=== PATIENT | female | born 1945 | race Caucasian/White ===

== ENCOUNTER → 2019-11-20 12:10 | Outpatient (BNVA) | payer MEDICARE, OTHER, SELFPAY | PROVIDERS: Family Provider Family Medicine; PCP Family Medicine; Visit Provider Nurse Practitioner Family | DX: N39.0 Urinary tract infection, site not specified (principal) | CPT/HCPCS: 81003; 87086 ==

== ENCOUNTER 2020-05-23 09:58 | Outpatient (CLI) | payer MEDICARE, OTHER, SELFPAY ==
--- NOTE | 2020-05-23 10:11 | US_ITS ---
WS: [id number] ULTRASOUND PELVIS TECHNIQUE: Transabdominal and transvaginal. ULTRASOUND PELVIS TECHNIQUE: Transabdominal. CLINICAL INFORMATION: OVARIAN CYST : No. COMPARISON: None. FINDINGS: Hysterectomy. Adnexa: Cystic and solid left ovarian lesion measuring 7.3 x 5.1 x 4.6 cm. Right ovarian cyst measuri ng 3.7 x 2.2 x 3.1 cm. Right ovary size: 3.8 cm x 3.1 cm x 2.2 cm. Right ovary volume: 13.5 ccm3. Left ovary size: 7.2 cm x 5.4 cm x 5.3 cm. Left ovary volume: 107.2 ccm3 Free fluid: Free fluid right adnexa Other findings: None. US/US pelvic with transvaginal IMPRESSION: 1. Prior hysterectomy. 2. Cystic and solid left ovarian lesion measuring 7.3 x 5.1 x 4.6 cm most cons istent with neoplasm. Recommend BOWLING BALL ENGRAVER consultation for resection. 3. Right ovarian cyst measuring 3.7 x 2.2 x 3.1 CM. 4. Free fluid in the right adnexa.
== END 2020-05-23 09:59 | disposition home or self-care (01) ==
LOC: RAD 10:00
PROVIDERS: PCP Family Medicine; Visit Provider Family Medicine
DX: N83.201 Unspecified ovarian cyst, right side; N83.202 Unspecified ovarian cyst, left side
CPT/HCPCS: 76830; 76856

== ENCOUNTER → 2020-07-25 13:56 | Outpatient (BNVA) | payer MEDICARE, OTHER, SELFPAY | PROVIDERS: PCP Family Medicine; Referring Provider Family Medicine; Visit Provider Dermatology | DX: L73.9 Follicular disorder, unspecified (principal); L57.0 Actinic keratosis; W57.XXXA Bitten or stung by nonvenomous insect and other nonvenomous arthropods, initial encounter; X58.XXXA Exposure to other specified factors, initial encounter; B07.8 Other viral warts | CPT/HCPCS: 17000; 17003; 17110; 99203 ==

== ENCOUNTER 2020-09-13 09:01 | Emergency (ER) | payer MEDICARE, OTHER, SELFPAY ==
[2020-09-13 09:06] VITALS: BP 183/100; PULSE 101; RESP 18; TEMP 36.8; O2SAT 96; BMI 30.4
--- NOTE | 2020-09-13 09:30 | W.ED.ANXIETY ---
HPI - Anxiety General: Chief Complaint: Anxiety Stated Complaint: Left side numb pt states not having stroke Time Seen by Provider: 09/13/20 09:16 History of Present Illness: HPI narrative: Patient is a 75-year-old female comes to the ED with numbness to both right and left upper extremities and anxiety. Symptoms started this morning when she woke up. Patient also states she is very anxious. Now. Patient states she has a past medical history of MS. Patient states she has had the symptoms before usually she gets steroid help manage her symptoms. MD complaint: anxiety Associated symptoms: Deny chest pain, chills, fever(s), headache(s), nausea, palpitations or vomiting Review of Systems Const: Denies: fever(s), chills or fatigue Eyes: Denies: change in vision or eye discomfort ENMT: Denies: throat pain, odynophagia, nasal discharge or nasal congestion Card: Denies: chest pain, palpitations, edema, swelling of feet/ankles, dyspnea on exertion or orthopnea Resp: Denies: dyspnea, productive cough or non-productive cough GI: Denies: abdominal pain, nausea, vomiting, diarrhea, constipation or hematochezia : Denies: flank pain, dysuria or hematuria Musc: Denies: neck pain, back pain or extremity swelling Skin/Breast: Denies: rash or new lesions Neuro: Reports: numbness in extremities (to right and left upper extremities.); Denies: headache(s) or weakness in extremities Psych: Reports: anxiety PFSH ED PFSH: Family History Grandmother Cancer Father Diabetes Mother Hypertension Other Psychiatric illness Social History Smoking and tobacco status: former smoker Alcohol intake: former Physical Exam Const: COMMON NORMALS: no acute distress, patient oriented x3, healthy appearing and alert GENERAL APPEARANCE: cooperative, comfortable and anxious HENMT: COMMON NORMALS: normocephalic HEAD & SCALP: normocephalic MOUTH: Normal oral and palatal mucosa present THROAT: posterior oropharynx normal and uvula midline Eye: COMMON NORMALS: Equal, round and reactive pupils present and EOMs intact bilaterally PUPIL: Yes Equal, round and reactive pupils present Neck/C-Spine: COMMON NORMALS: supple GENERAL: Yes normal visual inspection Resp: COMMON NORMALS: normal respiratory effort, No retractions, No use of accessory muscles and clear to auscultation bilaterally AUSCULTATION: clear to auscultation bilaterally Cardio: COMMON NORMALS: regular rate, regular rhythm, S1 normal heart sound present, S2 normal heart sound present, No gallops present (Cardio), No clicks present (Cardio), No murmurs present (Cardio) and Peripheral pulses 2+ throughout RATE: regular rate RHYTHM: regular rhythm HEART SOUNDS: S1 normal heart sound present and S2 normal heart sound present PERIPHERAL PULSES: Peripheral pulses 2+ throughout GI: COMMON NORMALS: Normal to inspection, nondistended, normoactive bowel sounds present, Soft to palpation, non-tender and no masses PALPATION: Yes Soft to palpation : COMMON NORMALS: Yes no CVA tenderness BLADDER/KIDNEY EXAM: Yes no CVA tenderness Back/Pelvis: COMMON NORMALS: no CVA tenderness Extremity: COMMON NORMALS: normal to inspection and no pedal edema Neuro: COMMON NORMALS: patient oriented x3, CN's II-XII intact bilaterally, moves all extremities, no focal motor deficits and no sensory deficits noted SENSORIUM/ORIENTATION: Yes alert COORDINATION/BALANCE: [id number] test normal SPEECH: speech normal SENSORY EXAM: Yes extremities (intact) MOTOR EXAM: 5/5 motor strength present throughout COORDINATION: [id number] test normal Psych: SPEECH: Yes excessive and Yes rapid MOOD & AFFECT: Yes anxious Skin: GENERAL SKIN EXAM: dry skin Course ED course: Told patient to perform further testing such as an head CT and labs. Patient says she refuses to get any extra work-up done. I explained to her the risk. She understood and said she would be happy to sign an AMA form. Vital Signs: Vital signs: Vital Signs Temperature 98.3 F 09/13/20 09:06 Pulse Rate 78 09/13/20 10:28 Respiratory Rate 18 09/13/20 10:28 Blood Pressure 119/52 09/13/20 10:28 Pulse Oximetry 95 09/13/20 10:28 MDM - Anxiety MDM Narrative: Medical decision making narrative: Patient is a 75-year-old female who comes to the ED with anxiety and upper extremity numbness bilaterally. Patient says the upper extremity numbness bilaterally is related to her MS and she has had the symptoms in the past. I performed a neuro exam on patient and it was normal and showed no deficits. Patient did appear very anxious and states that she does have problems with anxiety in the past. I told patient I did like to do further testing such as a head CT and some lab work but she refused them. She agreed and signed an AMA form before being discharged. Patient was given a dose of IM Ativan and Solu-Medrol. She was diagnosed with acute anxiety and multiple sclerosis and discharged with a prescription for prednisone. Patient given return to ED precautions. I explained to her that I would like to perform further testing patient CT imaging and labs she refused and signed AMA form. She was told to follow-up with PCP in 7 to 10 days. Patient understood and agreed with plan. Discharge Plan Discharge Patient Disposition: Home Clinical Impression: Acute anxiety, Multiple sclerosis Condition: Stable Prescriptions: New prednisone 50 mg tablet 50 mg PO DAILY 5 Days Qty: 5 RF: 0 No Action trimethoprim 100 mg tablet 100 mg PO ONCE RF: 0 levothyroxine 100 mcg capsule 100 mcg PO ONCE RF: 0 pantoprazole 40 mg tablet,delayed release (DR/EC) 40 mg PO ONCE RF: 0 cholecalciferol (vitamin D3) 50 mcg (2,000 unit) capsule 50 mcg PO ONCE RF: 0 calcium carbonate [Calcium 500] 500 mg calcium (1,250 mg) tablet 500 mg PO ONCE RF: 0 Probiotic 3 billion cell capsule 3,000 mmu cells PO ONCE RF: 0 venlafaxine 50 mg tablet 50 mg PO ONCE RF: 0 venlafaxine 150 mg tablet extended release 24hr 150 mg PO ONCE RF: 0 multivitamin Capsule 1 cap PO ONCE RF: 0 meclizine 25 mg tablet 25 mg PO TID PRN (Reason: dizziness) Qty: 10 RF: 0 Discharge Orders: Discharge Order (Routine); Ordered 09/13/20 Ordered By: Dipesh Singleton Referrals: Woodrow Estes MD [Primary Care Provider] - Discharge Diet: Regular Discharge Activity: Increase activity as tolerated Patient Instructions: Multiple Sclerosis, Anxiety (ED) Activity Restrictions/Additional Instructions: Follow-up with medical provider as directed in 7-10 days. Take medications as prescribed. Return to the ER or your medical provider if condition worsens. Please read and understand discharge instructions. If any questions, please ask. Discharge Date/Time: 09/13/20 10:31 Coding Level of Care Code ED Machine Featheredger And Reducer for Chg Fwd Exam Comprehensive
[2020-09-13] MEDS: LORazepam 2 mg/mL INJ 1 mL 1 MG IM (09:43)
[2020-09-13 10:28] VITALS: BP 119/52; PULSE 78; RESP 18; O2SAT 95
== END 2020-09-13 10:31 | disposition home or self-care (01) ==
LOC: ER 10:12
PROVIDERS: Emergency Provider Physician Assistant; PCP Family Medicine
DX: F41.9 Anxiety disorder, unspecified (principal); G35 Multiple sclerosis; Z87.891 Personal history of nicotine dependence
CPT/HCPCS: 12345; 96372; 99281; 99283; J2060; J2930

== ENCOUNTER 2020-09-26 14:04 | Emergency (ER) | payer MEDICARE, OTHER, SELFPAY ==
[2020-09-26 14:20] VITALS: BP 123/83; PULSE 83; RESP 14; TEMP 36.8; O2SAT 100; BMI 33.3
[2020-09-26 14:58] VITALS: BP 129/90; PULSE 87; RESP 15; O2SAT 97
--- NOTE | 2020-09-26 15:50 | XR_ITS ---
WS: [id number] Exam: XR chest 1V portable [id number] Date/Time of Exam: 09/26/2020 3:50 PM Reason For Exam: weakness Comparison 06/29/2019. The lungs are clear and fully inflated. Normal cardiomediastinal structures and bony elements. Promin ent hiatal hernia. No change. XR/XR chest 1V portable [id number] IMPRESSION: 1. No acute cardiopulmonary finding. 2. Hiatal hernia.
--- NOTE | 2020-09-26 15:53 | W.ED.WEAKNES ---
HPI - Weakness General: Chief complaint: Weakness Stated complaint: WEAKNESS Time Seen by Provider: 09/26/20 15:03 Source: patient and family () Mode of arrival: ambulatory Limitations: no limitations History of Present Illness: HPI Narrative: Patient is a 75-year-old female who presents to the emergency department with complaints of progressive generalized weakness that has been going on for about 2 weeks. She states her symptoms are progressively worsening. She states that she has a history of multiple sclerosis but the doctors in this area do not believe her. She states she was diagnosed in 1983 at a hospital in [place]. She denies any fever, nausea or vomiting, headaches, dizziness. She denies any urinary symptoms. She denies any shortness of breath. Complaint: generalized weakness Onset (ago): week(s) (2) Duration: constant and progressively worsening Migration: none Severity: moderate Relieving factors: none Exacerbating factors: none Associated symptoms: Denies chills, dysuria, fever(s), headache(s), nausea or vomiting Review of Systems General: Reports: 10 or more systems reviewed and unremarkable except in HPI and below Const: Denies: fever(s), chills or body aches Eyes: Denies: change in vision or blurry vision ENMT: Denies: throat pain, enlarged tonsils, odynophagia, hoarseness, mouth pain or swelling of lips/tongue Card: Denies: palpitations, irregular heart rhythm, edema or swelling of feet/ankles Resp: Denies: dyspnea, productive cough or non-productive cough GI: Denies: abdominal pain, nausea or vomiting : Denies: flank pain, difficulty voiding, dysuria, urinary frequency, urinary urgency or urinary hesitancy Musc: Denies: neck pain, back pain or extremity swelling Skin/Breast: Denies: rash, pruritus or erythema Neuro: Denies: headache(s), numbness in extremities or weakness in extremities Endo: Denies: polyuria, polydipsia or tired all the time PFS ED PFSH: Medical History Hypothyroidism Surgical History History of carpal tunnel surgery of right wrist History of hysterectomy History of tonsillectomy and adenoidectomy Family History Grandmother Cancer Father Diabetes Mother Hypertension Other Psychiatric illness Social History Smoking and tobacco status: former smoker Alcohol intake: former Physical Exam Const: COMMON NORMALS: no acute distress, average body habitus, patient oriented x3, no limitations, healthy appearing, alert and well nourished HENMT: COMMON NORMALS: normocephalic, atraumatic and moist oral mucous membranes HEAD & SCALP: normocephalic and atraumatic Eye: COMMON NORMALS: Equal, round and reactive pupils present, EOMs intact bilaterally, conjunctivae normal and no scleral icterus CONJUNCTIVA: Yes conjunctivae normal PUPIL: Yes Equal, round and reactive pupils present Neck/C-Spine: COMMON NORMALS: full ROM, supple, no meningeal signs, no JVD and No carotid bruits Resp: COMMON NORMALS: normal respiratory effort, No retractions, No use of accessory muscles, clear to auscultation bilaterally and percussion normal AUSCULTATION: clear to auscultation bilaterally PERCUSSION: percussion normal Cardio: COMMON NORMALS: no JVD, regular rate, regular rhythm, S1 normal heart sound present, S2 normal heart sound present, No gallops present (Cardio), No clicks present (Cardio), No murmurs present (Cardio), No rub (Cardio) and Peripheral pulses 2+ throughout RATE: regular rate RHYTHM: regular rhythm HEART SOUNDS: S1 normal heart sound present and S2 normal heart sound present PERIPHERAL PULSES: Peripheral pulses 2+ throughout GI: COMMON NORMALS: Normal to inspection, nondistended, normoactive bowel sounds present, Soft to palpation, non-tender, No hepatosplenomegaly present, no masses and no bruits PALPATION: Yes Soft to palpation and Yes No hepatosplenomegaly present Extremity: COMMON NORMALS: normal to inspection, full ROM, capillary refill normal, no calf tenderness and no pedal edema Neuro: COMMON NORMALS: patient oriented x3 SENSORIUM/ORIENTATION: Yes alert MENINGEAL SIGNS: Yes no meningeal signs Skin: COMMON NORMALS: no rashes or lesions noted, no wounds, turgor normal, no jaundice, no petechiae and no mottling GENERAL SKIN EXAM: no rashes or lesions noted and turgor normal Course Reevaluation(s): Reevaluation #1: Discussed her lab and imaging findings with her. Explained to her that TSH is elevated which means she is hypothyroid and this goes along with all her symptoms of weakness loss of energy, and loss of appetite. We will increase the dose of her levothyroxine and she is to follow-up with her primary care provider. She states that she has an appointment with him tomorrow. She is also advised that she may need evaluation by a neurologist for her MS diagnosis. She does not want to see Dr. Sanchez so I advised her that her primary care provider should refer her to a neurologist in [place]. She voiced understanding and is in agreement with this plan. Time: 18:47 Vital Signs: Vital signs: Vital Signs Temperature 98.2 F 09/26/20 14:20 Pulse Rate 64 09/26/20 19:07 Respiratory Rate 17 09/26/20 19:07 Blood Pressure 123/94 09/26/20 19:07 Pulse Oximetry 97 09/26/20 19:07 MDM - Weakness MDM Narrative: Medical decision making narrative: 75-year-old female patient with a history of hypothyroidism and who presents to the emergency department with progressive weakness, loss of energy, loss of appetite, of about 2 weeks duration. Evaluation in the emergency department is unremarkable other than elevated TSH. She was prescribed an increased dose of levothyroxine Saturday discharged to follow-up with her primary care provider. The patient states that she has a history of multiple sclerosis but that has not been addressed since she moved to this area, so therefore advised to bring it up with her primary care provider, get an MRI of her brain and to be referred to a neurologist. She does not want to be referred to the local neurologist as she was not satisfied when she saw her before. She has an appointment with her primary care provider tomorrow. Medical Records: Attestation: I reviewed the patient's medical records. Lab Data: Attestation: I reviewed the patient's lab results. Labs: Lab Results 09/26/20 09/26/20 09/26/20 Range/Units 16:11 16:11 16:32 WBC 13.5 H (4.0-10.0) 10^3/ uL RBC 4.79 (4.1-5.3) 10^6/u L Hgb 13.2 (11.5-15.3) g/dL Hct 41.7 (37.0-47.0) % MCV 87.1 (81-99) fL MCH 27.6 L (28.0-34.0) pg MCHC 31.7 (30.0-36.0) g/dL RDW 14.7 (12.1-15.1) % Plt Count 369 (130-400) 10^3/c mm MPV 8.1 (7.4-10.4) fL Neut % (Auto) 76.0 % Lymph % (Auto) 18.5 % [place] % (Auto) 3.3 % Eos % (Auto) 0.7 % Baso % (Auto) 0.4 % Neut # (Auto) 10.21 H (1.8-7.7) 10^3/u L Lymph # (Auto) 2.5 (0.8-4.8) 10^3/u L [place] # (Auto) 0.4 (0.2-0.9) 10^3/u L Eos # (Auto) 0.1 (0.0-0.8) 10^3/u L Baso # (Auto) 0.1 (0.0-0.1) 10^3/u L Nucleated RBC % (a uto) 0 % Nucleated RBCs # 0.0 /100WBC Sodium (136-145) mmol/L Potassium (3.5-5.1) mmol/L Chloride (98-107) mmol/L Carbon Dioxide (22-29) mmol/L Anion Gap (5-19) BUN (8-23) mg/dL Creatinine (0.5-0.9) mg/dL GFR Calculation Glucose (65-115) mg/dL Calculated Osmolal ity (285-295) mOsm/k g Calcium (8.5-10.5) mg/dL Phosphorus (2.5-4.5) mg/dL Magnesium (1.7-2.3) mg/dL Total Bilirubin (0.15-1.2) mg/dL AST (0-32) U/L ALT (0-33) U/L Alkaline Phosphata se (35-105) IU/L Creatine Kinase (26-192) U/L C-Reactive Protein (0.0-4.9) mg/L Total Protein (6.6-8.7) g/dL Albumin (3.5-5.2) g/dL Globulin (1.3-4.6) g/dL Procalcitonin (0-0.5) ng/mL TSH (0.27-4.20) uIU/ mL Urine Color Yellow (Yellow) Urine Appearance Clear (CLEAR) Urine pH 5 (5-7) Ur Specific Gravit y 1.015 (1.005-1.030) Urine Protein Neg (Negative) Urine Glucose (UA) Norm (Normal) Urine Ketones Negative (Negative) Urine Blood Neg (Negative) Urine Nitrate Negative (Negative) Urine Bilirubin Neg (Negative) Urine Urobilinogen Norm (Negative) mg/dL Ur Leukocyte Starla ase Negative (Negative) Urine Opiates Scre en Negative (Negative) ng/mL Ur Barbiturates Sc reen Negative (Negative) ng/mL Ur Phencyclidine S crn Negative (Negative) ng/mL Ur Amphetamines Sc reen Negative (Negative) ng/mL U Benzodiazepines Scrn Negative (Negative) ng/mL Urine Cocaine Scre en Negative (Negative) ng/mL U Marijuana (THC) Screen Negative (Negative) ng/mL 11/16/20 Range/Units 16:32 WBC (4.0-10.0) 10^3/ uL RBC (4.1-5.3) 10^6/u L Hgb (11.5-15.3) g/dL Hct (37.0-47.0) % MCV (81-99) fL MCH (28.0-34.0) pg MCHC (30.0-36.0) g/dL RDW (12.1-15.1) % Plt Count (130-400) 10^3/c mm MPV (7.4-10.4) fL Neut % (Auto) % Lymph % (Auto) % [place] % (Auto) % Eos % (Auto) % Baso % (Auto) % Neut # (Auto) (1.8-7.7) 10^3/u L Lymph # (Auto) (0.8-4.8) 10^3/u L [place] # (Auto) (0.2-0.9) 10^3/u L Eos # (Auto) (0.0-0.8) 10^3/u L Baso # (Auto) (0.0-0.1) 10^3/u L Nucleated RBC % (a uto) % Nucleated RBCs # /100WBC Sodium 137 (136-145) mmol/L Potassium 4.0 (3.5-5.1) mmol/L Chloride 98 (98-107) mmol/L Carbon Dioxide 29 (22-29) mmol/L Anion Gap 14.0 (5-19) BUN 20 (8-23) mg/dL Creatinine 0.7 (0.5-0.9) mg/dL GFR Calculation Not Reportable Glucose 99 (65-115) mg/dL Calculated Osmolal ity 287 (285-295) mOsm/k g Calcium 9.3 (8.5-10.5) mg/dL Phosphorus 4.6 H (2.5-4.5) mg/dL Magnesium 2.2 (1.7-2.3) mg/dL Total Bilirubin 0.2 (0.15-1.2) mg/dL AST 14 (0-32) U/L ALT 18 (0-33) U/L Alkaline Phosphata se 98 (35-105) IU/L Creatine Kinase 28 (26-192) U/L C-Reactive Protein 1.4 (0.0-4.9) mg/L Total Protein 6.7 (6.6-8.7) g/dL Albumin 4.3 (3.5-5.2) g/dL Globulin 2.4 (1.3-4.6) g/dL Procalcitonin 0.04 (0-0.5) ng/mL TSH 7.13 H (0.27-4.20) uIU/ mL Urine Color (Yellow) Urine Appearance (CLEAR) Urine pH (5-7) Ur Specific Gravit y (1.005-1.030) Urine Protein (Negative) Urine Glucose (UA) (Normal) Urine Ketones (Negative) Urine Blood (Negative) Urine Nitrate (Negative) Urine Bilirubin (Negative) Urine Urobilinogen (Negative) mg/dL Ur Leukocyte Starla ase (Negative) Urine Opiates Scre en (Negative) ng/mL Ur Barbiturates Sc reen (Negative) ng/mL Ur Phencyclidine S crn (Negative) ng/mL Ur Amphetamines Sc reen (Negative) ng/mL U Benzodiazepines Scrn (Negative) ng/mL Urine Cocaine Scre en (Negative) ng/mL U Marijuana (THC) Screen (Negative) ng/mL Imaging Data^: CXR: Attestation: I personally reviewed and interpreted this imaging study as follows: Radiologist's impression: [address] [address] XRay Report Signed Patient: Fara Rosenberg #: [id number] : 5Acct#:[id number] Age/Sex: 75 / FADM Date: 09/26/20 Loc: ERRoom/Bed: Attending Dr: Ordering Provider/Ordering MD: Salina Pressley MD, [facility] Date of Service: 09/26/20 Procedure(s): XR chest 1V portable [id number] Accession Number(s): [id number] Report Number: [id number] WS: [id number] Exam: XR chest 1V portable [id number] Date/Time of Exam: 09/26/2020 3:50 PM Reason For Exam: weakness Comparison 06/29/2019. The lungs are clear and fully inflated. Normal cardiomediastinal structures and bony elements. Prominent hiatal hernia. No change. XR/XR chest 1V portable [id number] IMPRESSION: 1. No acute cardiopulmonary finding. 2. Hiatal hernia. Dictated By:Sha Kellogg DO Signed By:Roger Bray Date/Time:09/26/201605 DD/ 05 EKG Data^: EKG 1: Attestation: I personally reviewed and interpreted this EKG as follows: EKG interpretation date: 09/26/20 EKG interpretation time: 16:29 Prior EKG tracings: not available for review Interpretation: Normal sinus rhythm. Heart rate [address] changes. Normal axis. Discharge Plan Discharge Patient Disposition: Home Clinical Impression: Hypothyroidism Qualifiers: Hypothyroidism type: unspecified Qualified Code(s): E03.9 - Hypothyroidism, unspecified Condition: Stable Prescriptions: New levothyroxine 125 mcg tablet 125 mcg PO DAILY Qty: 30 RF: 0 Continued cholecalciferol (vitamin D3) 50 mcg (2,000 unit) capsule 50 mcg PO DAILY RF: 0 Probiotic 3 billion cell capsule 3,000 mmu cells PO DAILY RF: 0 venlafaxine 150 mg tablet extended release 24hr 150 mg PO DAILY RF: 0 multivitamin Capsule 1 cap PO DAILY RF: 0 venlafaxine 50 mg tablet 75 mg PO DAILY RF: 0 meclizine 25 mg tablet 25 mg PO TID PRN (Reason: dizziness) Qty: 10 RF: 0 triamcinolone acetonide 0.1 % ointment 1 applic TOPICAL BID Qty: 80 RF: 0 prednisone 10 mg tablet 10 mg PO DAILY Qty: 30 RF: 0 omeprazole 40 mg Capsule,Delayed Release(Dr/Ec) 40 mg PO BID RF: 0 Keppra 1,000 mg Tablet 1,000 mg PO BID RF: 0 Discontinued levothyroxine 100 mcg capsule 100 mcg PO DAILY RF: 0 Discharge Orders: Discharge Order (Routine); Ordered 09/26/20 Ordered By: Salina Pressley Referrals: Woodrow Estes MD [Primary Care Provider] - 1-3 days Discharge Diet: Usual diet Discharge Activity: Increase activity as tolerated Patient Instructions: Hypothyroidism (ED) Activity Restrictions/Additional Instructions: Return for any new or worsening symptoms. Discontinue the current dose of your levothyroxine and start to take the new dose. Follow-up with Dr. Estes tomorrow as scheduled. Have Dr. Estes refer you to a neurologist in [place] since you do not want to see Dr. Sanchez. He can also order an outpatient MRI of your brain. Coding Level of Care Code ED Ornamental Painter for Chg Fwd Exam Comprehensive
--- NOTE | 2020-09-26 16:05 | ECG_ITS ---
[facility] Test Date: 2020-09-26 Pat Name: Fara Rosenberg Department: Room: Gender: Female Coding Spec: : 1945 Requested By: Salina Pressley I Order Number: [id number] Cole MD: Carlos Dalton M.D. Measurements Intervals Newcomb Rate: 64 P: 38 WY: 149 QRS: 6 QRSD: 78 T: 11 QT: 383 QTc: 398 Interpretive Statements SINUS RHYTHM POSSIBLE ANTERIOR MYOCARDIAL INFARCTION , PROBABLY OLD [30 ms Q WAVE IN V3/V4, OR R < 0.2 mV IN V4] Compared to ECG 06/29/2019 06:04:36 Myocardial infarct finding now present Electronically Signed On 09-26-2020 18:29:07 SHAPER MACHINE HAND by Carlos Dalton M.D. [id number] f
[2020-09-26 16:20] LABS: Add Urine Microscopic? NO
[2020-09-26 16:31] LABS: Amphetamines Screen Urine Negative (Negative); Barbiturates Screen Urine Negative (Negative); Benzodiazepines Screen Urine Negative (Negative); Cocaine Screen Urine Negative (Negative); Opiate Screen Urine Negative (Negative); PCP Screen Urine Negative (Negative); THC Screen Urine Negative (Negative)
[2020-09-26 16:34] LABS: Bilirubin Urine Neg (Negative); Blood Urine Neg (Negative); Glucose Urine UA Norm (Normal); Ketones Urine Negative (Negative); Leukocyte Esterase Urine Negative (Negative); Nitrate Urine Negative (Negative); Protein Urine Neg (Negative); Specific Gravity, Urine 1.015 (1.005-1.030); Urine Appearance Clear (CLEAR); Urine Color Yellow (Yellow); Urobilinogen Urine Norm (Negative); pH Urine 5 (5-7)
[2020-09-26 16:41] LABS: Basophils # 0.1 10^3/uL (0.0-0.1); Basophils % 0.4 %; Eosinophils # 0.1 10^3/uL (0.0-0.8); Eosinophils % 0.7 %; Hematocrit 41.7 % (37.0-47.0); Hemoglobin 13.2 g/dL (11.5-15.3); Lymphocytes # 2.5 10^3/uL (0.8-4.8); Lymphocytes % 18.5 %; Mean Corpuscular HGB Conc 31.7 g/dL (30.0-36.0); Mean Corpuscular Hemoglobin 27.6 pg (28.0-34.0); Mean Corpuscular Volume 87.1 fL (81-99); Mean Platelet Volume 8.1 fL (7.4-10.4); Monocytes # 0.4 10^3/uL (0.2-0.9); Monocytes % 3.3 %; Neutrophils # 10.21 10^3/uL (1.8-7.7); Nucleated Red Blood Cells % 0 %; Platelet Count 369 10^3/cmm (130-400); Red Blood Count 4.79 10^6/uL (4.1-5.3); Red Cell Distribution Width 14.7 % (12.1-15.1); White Blood Count 13.5 10^3/uL (4.0-10.0)
[2020-09-26 17:11] LABS: Procalcitonin 0.04 ng/mL (0-0.5); Thyroid Stimulating Hormone 7.13 uIU/mL (0.27-4.20)
[2020-09-26 17:23] LABS: Alanine Aminotransferase 18 U/L (0-33); Albumin Level 4.3 g/dL (3.5-5.2); Alkaline Phosphatase 98 IU/L (35-105); Aspartate Amino Transferase 14 U/L (0-32); Blood Urea Nitrogen 20 mg/dL (8-23); C Reactive Protein 1.4 mg/L (0.0-4.9); Calcium 9.3 mg/dL (8.5-10.5); Carbon Dioxide 29 mmol/L (22-29); Chloride 98 mmol/L (98-107); Creatine Phosphokinase 28 U/L (26-192); Globulin 2.4 g/dL (1.3-4.6); Glucose 99 mg/dL (65-115); Magnesium 2.2 mg/dL (1.7-2.3); Osmolality Calculated 287 mOsm/kg (285-295); Phosphorus 4.6 mg/dL (2.5-4.5); Sodium 137 mmol/L (136-145); Total Bilirubin 0.2 mg/dL (0.15-1.2); Total Protein 6.7 g/dL (6.6-8.7)
[2020-09-26 18:13] VITALS: BP 123/94; PULSE 69; RESP 16; O2SAT 93
[2020-09-26 19:07] VITALS: BP 123/94; PULSE 64; RESP 17; O2SAT 97
== END 2020-09-26 19:08 | disposition home or self-care (01) ==
PROVIDERS: Emergency Provider Family Medicine; PCP Family Medicine
DX: E03.9 Hypothyroidism, unspecified (principal); R53.1 Weakness; Z87.891 Personal history of nicotine dependence; Z79.52 Long term (current) use of systemic steroids; Z79.899 Other long term (current) drug therapy
CPT/HCPCS: 12345; 71045; 80053; 80306; 81003; 82550; 83735; 84100; 84145; 84443; 85025; 86140; 93005; 99281; 99283

== ENCOUNTER 2020-10-12 15:29 | Emergency (ER) | payer MEDICARE, OTHER, SELFPAY ==
[2020-10-12 15:33] VITALS: BP 143/73; PULSE 89; RESP 18; TEMP 36.3; O2SAT 97; BMI 31.6
--- NOTE | 2020-10-12 15:44 | XR_ITS ---
WS: [id number] Right hand, 3 views, 10/12/2020 Clinical Data: laceration rt thumb Comparison: None. Findings: No fractures or dislocations are seen. The soft tissues are unremarkable. There is osteoa rthritic change of the DIP joints of the second through fifth fingers.No radiopaque foreign bodies ar e seen. XR/XR hand RT min 3V* [id number] Impression: 1. Negative for fracture or dislocation. 2. 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
--- NOTE | 2020-10-12 16:06 | W.ED.WOUNDLC ---
HPI - Wound/Laceration General: Chief Complaint: Wound/Laceration Stated Complaint: LACERATION ON R THUMB Time Seen by Provider: 10/12/20 15:44 Source: patient Mode of arrival: ambulatory Limitations: no limitations History of Present Illness: HPI narrative: 75-year-old female patient reports fall at the veterinary clinic today prior to arrival. She reports injury to her right thumb. She reports taking her dog to the vet when the dog pulled her outside and tripped sustaining a fall. She reports did not hit her head. Denies further injuries, has ambulated since the fall without difficulty. Onset (ago): minute(s) (30) Place: other Patient tetanus UTD: No Context: accidental Associated symptoms: Reports no associated symptoms; Denies chills, fever(s), nausea or vomiting Treatments prior to arrival: other (Pressure dressing) Review of Systems General: Reports: 10 or more systems reviewed and unremarkable except in HPI and below Const: Denies: fever(s), chills, body aches, change in appetite or diaphoresis Eyes: Denies: change in vision, blurry vision, eye redness or dry eyes ENMT: Denies: throat pain, dental pain, disequilibrium, nasal discharge, nasal congestion or post nasal drip Card: Denies: chest pain, palpitations, irregular heart rhythm, swelling of feet/ankles or dyspnea on exertion Resp: Denies: dyspnea, productive cough, non-productive cough or wheezing GI: Denies: abdominal pain, nausea or vomiting : Denies: difficulty voiding or dysuria Musc: Reports: joint pain (Right thumb); Denies: neck pain or back pain Skin/Breast: Denies: rash or pruritus Neuro: Denies: headache(s), weakness in extremities or behavioral changes Psych: Denies: anxiety or depression Mihir/Lymph: Denies: easy bruising PFSH ED PFSH: Medical History (Reviewed 09/26/20 @ 16:05 by [place] [facility] [place] Surgical History (Reviewed 09/26/20 @ 16:05 by [place] [facility] [place] History of carpal tunnel surgery of right wrist History of hysterectomy History of tonsillectomy and adenoidectomy Family History (Reviewed 09/26/20 @ 16:05 by Salina [place] [facility] [place] Grandmother Cancer Father Diabetes Mother Hypertension Other Psychiatric illness Social History (Reviewed 09/26/20 @ 16:05 by [place] [facility] [place] Smoking and tobacco status: former smoker Alcohol intake: former Physical Exam Const: COMMON NORMALS: no acute distress, patient oriented x3, healthy appearing, alert and well nourished GENERAL APPEARANCE: cooperative, comfortable and well hydrated; not anxious and not ill appearing NUTRITIONAL APPEARANCE: thin ORIENTATION/CONSCIOUSNESS: Yes awake, Yes oriented to person, Yes oriented to place and Yes oriented to time; not confused HENMT: COMMON NORMALS: normocephalic, atraumatic, Normal external nose present and moist oral mucous membranes HEAD & SCALP: normal to inspection, normocephalic and atraumatic FACE & SINUS: normal facial exam, sinuses nontender and face symmetric NOSE: Normal external nose present Eye: COMMON NORMALS: Equal, round and reactive pupils present and EOMs intact bilaterally GENERAL EYE: appearance normal, both eyes and all related structures PUPIL: Yes Equal, round and reactive pupils present Neck/C-Spine: COMMON NORMALS: full ROM and no lymphadenopathy GENERAL: Yes normal visual inspection and Yes trachea midline CERVICAL SPINE: Yes cervical ROM normal, No pain with cervical ROM, No Cervical spine tenderness and No Paracervical muscle tenderness Lymph: LYMPHATIC: no lymphadenopathy noted Chest: COMMONS NORMALS: normal inspection of the chest Resp: COMMON NORMALS: normal respiratory effort, No retractions and clear to auscultation bilaterally EFFORT & INSPECTION: Yes able to speak in complete sentences AUSCULTATION: clear to auscultation bilaterally Cardio: COMMON NORMALS: regular rhythm, S1 normal heart sound present, S2 normal heart sound present and Peripheral pulses 2+ throughout RHYTHM: regular rhythm HEART SOUNDS: S1 normal heart sound present and S2 normal heart sound present PERIPHERAL PULSES: Peripheral pulses 2+ throughout GI: COMMON NORMALS: Normal to inspection, nondistended, normoactive bowel sounds present, Soft to palpation and non-tender INSPECTION: Yes normal to inspection PALPATION: Yes Soft to palpation : COMMON NORMALS: Yes no CVA tenderness BLADDER/KIDNEY EXAM: Yes no CVA tenderness Back/Pelvis: COMMON NORMALS: no CVA tenderness and thoracic and lumbar spine normal to inspection Extremity: COMMON NORMALS: normal to inspection and capillary refill normal GENERAL: Yes normal exam except as noted RIGHT UPPER EXTREMITY: Yes hand & digits Right hand and digits: Yes inspection (Laceration, flap 1.5 cm at the second PIP), Yes palpation (Tenderness of the area, right thumb, radial side), Yes ROM exam (Intact without deficits), Yes neurovascular exam (Intact without deficits) and Yes tendon exam (Intact without deficits) Neuro: COMMON NORMALS: patient oriented x3 and no focal motor deficits SENSORIUM/ORIENTATION: Yes alert, Yes oriented to person, Yes oriented to place and Yes oriented to time GAIT: Yes Normal gait present MOTOR EXAM: 5/5 motor strength present throughout Psych: COMMON NORMALS: mental status grossly normal, Normal thought process present and cooperative ACTIVITY/MOTOR BEHAVIOR: Yes appropriate eye contact THOUGHT PROCESS: Normal thought process present Skin: COMMON NORMALS: no rashes or lesions noted and turgor normal GENERAL SKIN EXAM: no rashes or lesions noted, elasticity normal and turgor normal LESIONS: no lesions RASHES: no rashes TRAUMA: abrasion (Small abrasion, 2 cm x 3 cm, superficial, no bleeding, proximal thumb) Procedures Laceration Laceration 1: Site: hand (right thumb) Side (If applicable): right Size (cm): 1.5 Description: flap, irregular and other (contused) Depth: simple, single layer Local Anesthetic: lidocaine 1% Amount of anesthesia used (mL): 2 Pre-repair: wound explored, irrigated extensively, deep structures intact, extensive debridement and wound margins revised Skin layer closed with: nylon Size (cm): 5-0 Number of sutures: 3 Course Vital Signs: Vital signs: Vital Signs Temperature 98.4 F 10/12/20 16:34 Pulse Rate 68 10/12/20 16:34 Respiratory Rate 18 10/12/20 16:34 Blood Pressure 128/74 10/12/20 16:34 Pulse Oximetry 98 10/12/20 16:34 MDM - Wound/Laceration Imaging Data^: Xray Ortho: Radiologist's impression: [address] [address] XRay Report Signed Patient: Fara Rosenberg #: [id number] : 5Acct#:[id number] Age/Sex: 75 / FADM Date: 10/12/20 Loc: ERRoom/Bed: Attending Dr: Ordering Provider/Ordering MD: Bobbi Lewis Date of Service: 10/12/20 Procedure(s): XR hand RT min 3V* [id number] Accession Number(s): [id number] Report Number: [id number] WS: [id number] Right hand, 3 views, 10/12/2020 Clinical Data: laceration rt thumb Comparison: None. Findings: No fractures or dislocations are seen. The soft tissues are unremarkable. There is osteoarthritic change of the DIP joints of the second through fifth fingers.No radiopaque foreign bodies are seen. XR/XR hand RT min 3V* [id number] Impression: 1. Negative for fracture or dislocation. 2. 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 Dictated By:Karen Del Rosario MD Signed By:Karen Del Rosarioigned Date/Time:10/12/20 1601 Discharge Plan Discharge Patient Disposition: Home Clinical Impression: Laceration, Fall against object Condition: Stable Prescriptions: No Action cholecalciferol (vitamin D3) 50 mcg (2,000 unit) capsule 50 mcg PO DAILY RF: 0 Probiotic 3 billion cell capsule 3,000 mmu cells PO DAILY RF: 0 venlafaxine 150 mg tablet extended release 24hr 150 mg PO DAILY RF: 0 multivitamin Capsule 1 cap PO DAILY RF: 0 venlafaxine 50 mg tablet 75 mg PO DAILY RF: 0 meclizine 25 mg tablet 25 mg PO TID PRN (Reason: dizziness) Qty: 10 RF: 0 triamcinolone acetonide 0.1 % ointment 1 applic TOPICAL BID Qty: 80 RF: 0 prednisone 10 mg tablet 10 mg PO DAILY Qty: 30 RF: 0 omeprazole 40 mg Capsule,Delayed Release(Dr/Ec) 40 mg PO BID RF: 0 Keppra 1,000 mg Tablet 1,000 mg PO BID RF: 0 levothyroxine 125 mcg tablet 125 mcg PO DAILY Qty: 30 RF: 0 Discharge Orders: Discharge ED (Routine); Ordered 10/12/20 Ordered By: Bobbi Lewis Referrals: Woodrow Estes MD [Primary Care Provider] - Discharge Diet: Usual diet Discharge Activity: Limit activity as instructed Patient Instructions: Diphtheria/Acellular Pertussis/Tetanus Booster Vaccine (Tdap) (Injection), Suture Care (ED), Finger Laceration (ED), Abrasion (ED) Activity Restrictions/Additional Instructions: remove sutures in 7 days -may go to urgent care or your family practice physician for removal Return to the emergency department if you develop increased thumb pain. Redness, drainage or red streaking of the right thumb Do not submerge the right thumb in water until sutures are removed. May gently wash the affected area with soap and water then pat dry immediately Coding Level of Care Code ED Patient Flow Coordinator for Lucero Vaughn
[2020-10-12] MEDS: tetanus-dipt-pertussis 0.5 mL SDV IM (16:28)
[2020-10-12] MEDS: lidocaine 1% INJ 20 mL INJECTION (16:29)
[2020-10-12 16:34] VITALS: BP 128/74; PULSE 68; RESP 18; TEMP 36.9; O2SAT 98
== END 2020-10-12 16:35 | disposition home or self-care (01) ==
PROVIDERS: Emergency Provider Nurse Practitioner Family; PCP Family Medicine
DX: S61.011A Laceration without foreign body of right thumb without damage to nail, initial encounter (principal); W01.0XXA Fall on same level from slipping, tripping and stumbling without subsequent striking against object, initial encounter; Z87.891 Personal history of nicotine dependence; Z23 Encounter for immunization
CPT/HCPCS: 12001; 12345; 73130; 90471; 90715; 99281; 99283

== ENCOUNTER 2020-12-13 07:58 | Outpatient (CLI) | payer MEDICARE, OTHER, SELFPAY ==
--- NOTE | 2020-12-13 08:05 | MM_ITS ---
WS: [id number] BILATERAL DIGITAL SCREENING MAMMOGRAPHY WITH CAD CLINICAL INFORMATION: SCREENING HISTORY: Screening mammogram. No current complaints. COMPARISON: TECHNIQUE: Bilateral CC and MLO views. FINDINGS: Scattered fibroglandular densities bilaterally. No suspicious focal mass, asymmetry, calcifications, or architectural distortion. No evidence of malignancy. Biopsy clip upper outer right breast with par enchymal fibrosis. MM/[place] [id number] IMPRESSION: BI-RADS: 2-Benign FOLLOW UP: 1 Year Follow-up Recommend return to annual screening mammography.
== END 2020-12-13 07:59 | disposition home or self-care (01) ==
LOC: RADSHAW 08:01
PROVIDERS: PCP Family Medicine; Visit Provider Family Medicine
DX: Z12.31 Encounter for screening mammogram for malignant neoplasm of breast (principal)
CPT/HCPCS: 77067

== ENCOUNTER 2021-01-07 17:51 | Emergency (ER) | payer MEDICARE, OTHER, SELFPAY ==
[2021-01-07 18:00] VITALS: BP 136/68; PULSE 66; RESP 18; TEMP 36.6; O2SAT 98; BMI 33.3
--- NOTE | 2021-01-07 18:54 | CTR_ITS ---
PROCEDURE INFORMATION: Exam: CT Head Without Contrast Exam date and time: 01/07/2021 7:29 PM Age: 75 years old Clinical indication: Patient HX: C/O BRUNNER, dizziness, nausea and weakness; Additional info: Dizzy TECHNIQUE: Imaging protocol: Computed tomography of the head without contrast. Radiation optimization: All CT scans at this facility use at least one of these dose optimization techniques: automated exposure control; mA and/or kV adjustment per patient size (includes targeted exams where dose is matched to clinical indication); or iterative reconstruction. COMPARISON: MRI Head w/wo* [id number] 10/30/2018 1:28 PM RADIATION DOSE METRICS: Total DLP (mGy-cm): 836.09 FINDINGS: Brain: There is mild cerebral atrophy. No acute intracranial hemorrhage. No focal intracranial mass. No acute brain ischemia. No midline shift of brain. Cope matter and white matter differentiation is preserved. No cerebral sulcal effacement. No basilar cisternal effacement. Cerebral ventricles: No ventriculomegaly. Bones/joints: Unremarkable. No acute fracture. Paranasal sinuses: Visualized sinuses are unremarkable. No fluid levels. Mastoid air cells: Visualized mastoid air cells are well aerated. Orbital cavity: Orbits are symmetric and unremarkable. Soft tissues: Unremarkable. CT/CT head wo con* [id number] IMPRESSION: 1. Negative for acute intracranial abnormality. 2. No change in the brain apparent when compared with brain MRI from 10/30/2018. Radiation Dose CTDIVOL = (mGy): DLP = 836.09 (mGy-cm)
--- NOTE | 2021-01-07 18:54 | XRR_ITS ---
PROCEDURE INFORMATION: Exam: XR Chest Exam date and time: 01/07/2021 6:56 PM Age: 75 years old Clinical indication: Other: Dizzy TECHNIQUE: Imaging protocol: XR of the chest Views: 1 view. COMPARISON: CR XR chest 1V portable [id number] 09/26/2020 3:53 PM FINDINGS: Lungs: Unremarkable. No consolidation. Pleural spaces: Unremarkable. No pleural effusion. No pneumothorax. Heart/Mediastinum: Unremarkable. No cardiomegaly. Bones/joints: Unremarkable. XR/XR chest 1V portable [id number] IMPRESSION: 1. No acute findings. 2. No change from comparison on 09/26/2020.
[2021-01-07 18:56] VITALS: BP 124/74; PULSE 59; RESP 18; O2SAT 98
[2021-01-07] MEDS: LORazepam 2 mg/mL INJ 1 mL 0.5 MG IVP (19:00)
[2021-01-07] MEDS: dexamethasone 4 mg/mL INJ 8 MG IVP (19:00)
[2021-01-07] MEDS: ondansetron 2 mg/ML SDV 2 mL 4 MG IVP (19:00)
[2021-01-07 19:17] LABS: Basophils % 0.7 %; Eosinophils # 0.3 10^3/uL (0.0-0.8); Eosinophils % 5.8 %; Hematocrit 40.1 % (37.0-47.0); Hemoglobin 12.5 g/dL (11.5-15.3); Lymphocytes # 1.5 10^3/uL (0.8-4.8); Lymphocytes % 27.3 %; Mean Corpuscular HGB Conc 31.2 g/dL (30.0-36.0); Mean Corpuscular Hemoglobin 27.7 pg (28.0-34.0); Mean Corpuscular Volume 88.7 fL (81-99); Mean Platelet Volume 9.2 fL (7.4-10.4); Monocytes # 0.3 10^3/uL (0.2-0.9); Monocytes % 6.1 %; Neutrophils # 3.33 10^3/uL (1.8-7.7); Neutrophils % 59.9 %; Nucleated Red Blood Cells % 0 %; Platelet Count 339 10^3/cmm (130-400); Red Blood Count 4.52 10^6/uL (4.1-5.3); Red Cell Distribution Width 13.8 % (12.1-15.1); White Blood Count 5.6 10^3/uL (4.0-10.0)
[2021-01-07 19:50] LABS: Alanine Aminotransferase 14 U/L (0-33); Albumin Level 3.8 g/dL (3.5-5.2); Alkaline Phosphatase 76 IU/L (35-105); Anion Gap 12.6 (5-19); Aspartate Amino Transferase 18 U/L (0-32); Blood Urea Nitrogen 8 mg/dL (8-23); C Reactive Protein 4.2 mg/L (0.0-4.9); Calcium 8.9 mg/dL (8.5-10.5); Carbon Dioxide 26 mmol/L (22-29); Chloride 105 mmol/L (98-107); Globulin 2.7 g/dL (1.3-4.6); Glucose 89 mg/dL (65-115); Magnesium 2.1 mg/dL (1.7-2.3); Osmolality Calculated 288 mOsm/kg (285-295); Potassium 3.6 mmol/L (3.5-5.1); Sodium 140 mmol/L (136-145); Total Bilirubin 0.2 mg/dL (0.15-1.2); Total Protein 6.5 g/dL (6.6-8.7)
[2021-01-07 19:52] VITALS: BP 124/74; PULSE 58; RESP 25; O2SAT 95
[2021-01-07 20:08] LABS: Erythrocyte Sedimentation Rate 20 mm/hr (0-15)
[2021-01-07 20:11] LABS: Add Urine Microscopic? NO
[2021-01-07 20:12] LABS: Bilirubin Urine Neg (Negative); Blood Urine Neg (Negative); Glucose Urine UA Norm (Normal); Ketones Urine Negative (Negative); Leukocyte Esterase Urine Negative (Negative); Nitrate Urine Negative (Negative); Protein Urine Neg (Negative); Specific Gravity, Urine 1.015 (1.005-1.030); Urine Appearance Clear (CLEAR); Urine Color Yellow (Yellow); Urobilinogen Urine Norm (Negative); pH Urine 5 (5-7)
[2021-01-07 22:04] VITALS: BP 133/88; PULSE 71; RESP 17; O2SAT 96
--- NOTE | 2021-01-08 02:21 | W.ED.DIZZY ---
HPI - Dizziness General: Chief Complaint: Dizziness Stated Complaint: DIZZINESS Time Seen by Provider: 01/07/21 18:29 History of Present Illness: HPI Narrative: 75-year-old female with a history of vertigo as well as MS presents with dizziness. She states that she woke with it this morning it has not improved throughout the day. She had nearly fallen couple of times. She states at 1 point she had had a headache, but it improved. She complains of left-sided weakness to the upper and lower extremity that is chronic. MD elicited complaint: dizziness and vertigo Pertinent past history: other Onset (ago): hour(s) Timing: awoke with symptoms Severity: moderate Associated symptoms: Reports headache(s) and nausea; Denies chest pain, palpitations or vomiting Associated neuro symptoms: Deny confusion Review of Systems Const: Denies: fever(s) Eyes: Denies: change in vision ENMT: Denies: odynophagia, post nasal drip or sinus pain Card: Denies: chest pain, palpitations or irregular heart rhythm Resp: Denies: dyspnea, non-productive cough or wheezing GI: Reports: nausea; Denies: abdominal pain or vomiting : Denies: dysuria or hematuria Musc: Denies: neck pain or joint warmth Skin/Breast: Denies: rash or erythema Neuro: Reports: headache(s), dizziness and vertigo; Denies: confusion or seizure-like activity Psych: Denies: anxiety PFSH ED PFSH: Medical History (Reviewed 09/26/20 @ 16:05 by Salina Pressley MD, [facility] [place] Hypothyroidism Surgical History (Reviewed 09/26/20 @ 16:05 by Salina Pressley MD, [facility] [place]) History of carpal tunnel surgery of right wrist History of hysterectomy History of tonsillectomy and adenoidectomy Family History (Reviewed 09/26/20 @ 16:05 by Salina Pressley MD, [facility] [place]) Grandmother Cancer Father Diabetes Mother Hypertension Other Psychiatric illness Social History (Reviewed 09/26/20 @ 16:05 by Salina Pressley MD, [facility] [place]) Smoking and tobacco status: former smoker Alcohol intake: former Physical Exam Const: GENERAL APPEARANCE: well developed ORIENTATION/CONSCIOUSNESS: Yes oriented to person, Yes oriented to place and Yes oriented to time HENMT: COMMON NORMALS: normocephalic, external ears normal and Normal external nose present HEAD & SCALP: normocephalic FACE & SINUS: normal facial exam NOSE: Normal external nose present and No nasal discharge present EXTERNAL EAR: Yes external ears normal Eye: COMMON NORMALS: Equal, round and reactive pupils present, EOMs intact bilaterally and conjunctivae normal EYELID: eyelids normal CONJUNCTIVA: Yes conjunctivae normal PUPIL: Yes Equal, round and reactive pupils present Neck/C-Spine: GENERAL: No tracheal deviation Chest: COMMONS NORMALS: normal inspection of the chest CHEST: No tenderness Resp: COMMON NORMALS: clear to auscultation bilaterally EFFORT & INSPECTION: No tachypneic, No respiratory distress, No retractions, No uses accessory muscles and No tracheal deviation AUSCULTATION: clear to auscultation bilaterally, no rhonchi, no wheezes and lung sounds not diminished Cardio: COMMON NORMALS: regular rate and regular rhythm RATE: regular rate RHYTHM: regular rhythm HEART SOUNDS: no murmurs PERIPHERAL PULSES: radial pulses present GI: INSPECTION: No abdominal distension AUSCULTATION: No Hyperactive bowel sounds present and No Hypoactive bowel sounds present PALPATION: No Guarding due to palpation present (GI) and No Rigid due to palpation PERCUSSION: no dullness to percussion and no tympanic to percussion Neuro: SENSORIUM/ORIENTATION: Yes oriented to person, Yes oriented to place and Yes oriented to time CRANIAL NERVES: Yes CN normal except as noted COORDINATION/BALANCE: [id number] test normal and qlyi-sy-[id number] test normal SPEECH: speech normal GAIT: Yes Unable to assess gait SENSORY EXAM: Yes extremities (intact) MOTOR EXAM: Pronator motor function not present COORDINATION: fizcbg-rl-sawc test normal and kiaq-oz-mrey test normal Psych: COMMON NORMALS: mental status grossly normal Skin: COMMON NORMALS: no rashes or lesions noted GENERAL SKIN EXAM: no rashes or lesions noted Course Vital Signs: Vital signs: Vital Signs Temperature 97.9 F 01/07/21 18:00 Pulse Rate 71 01/07/21 22:04 Respiratory Rate 17 01/07/21 22:04 Blood Pressure 133/88 01/07/21 22:04 Pulse Oximetry 96 01/07/21 22:04 MDM - Dizziness MDM Narrative: Medical decision making narrative: No signs of acute stroke, especially posterior circulation stroke. Vertigo is improved with lorazepam. Head CT is negative. Labs are benign. She was given dexamethasone here. Her inflammatory markers are negative. She will go home on lorazepam and meclizine, warning signs about medications given. She will follow-up as an outpatient, and return if worse. Lab Data: Labs: Lab Results 01/07/21 01/07/21 01/07/21 Range/Units 18:37 18:37 18:37 WBC 5.6 (4.0-10.0) 10^3/ uL RBC 4.52 (4.1-5.3) 10^6/u L Hgb 12.5 (11.5-15.3) g/dL Hct 40.1 (37.0-47.0) % MCV 88.7 (81-99) fL MCH 27.7 L (28.0-34.0) pg MCHC 31.2 (30.0-36.0) g/dL RDW 13.8 (12.1-15.1) % Plt Count 339 (130-400) 10^3/c mm MPV 9.2 (7.4-10.4) fL Neut % (Auto) 59.9 % Lymph % (Auto) 27.3 % [place] % (Auto) 6.1 % Eos % (Auto) 5.8 % Baso % (Auto) 0.7 % Neut # (Auto) 3.33 (1.8-7.7) 10^3/u L Lymph # (Auto) 1.5 (0.8-4.8) 10^3/u L [place] # (Auto) 0.3 (0.2-0.9) 10^3/u L Eos # (Auto) 0.3 (0.0-0.8) 10^3/u L Baso # (Auto) 0.0 (0.0-0.1) 10^3/u L Nucleated RBC % (a uto) 0 % Nucleated RBCs # 0.0 /100WBC ESR 20 H (0-15) mm/hr Sodium 140 (136-145) mmol/L Potassium 3.6 (3.5-5.1) mmol/L Chloride 105 (98-107) mmol/L Carbon Dioxide 26 (22-29) mmol/L Anion Gap 12.6 (5-19) BUN 8 (8-23) mg/dL Creatinine 0.6 (0.5-0.9) mg/dL GFR Calculation Not Reportable Glucose 89 (65-115) mg/dL Calculated Osmolal ity 288 (285-295) mOsm/k g Calcium 8.9 (8.5-10.5) mg/dL Magnesium 2.1 (1.7-2.3) mg/dL Total Bilirubin 0.2 (0.15-1.2) mg/dL AST 18 (0-32) U/L ALT 14 (0-33) U/L Alkaline Phosphata se 76 (35-105) IU/L C-Reactive Protein 4.2 (0.0-4.9) mg/L Total Protein 6.5 L (6.6-8.7) g/dL Albumin 3.8 (3.5-5.2) g/dL Globulin 2.7 (1.3-4.6) g/dL Urine Color (Yellow) Urine Appearance (CLEAR) Urine pH (5-7) Ur Specific Gravit y (1.005-1.030) Urine Protein (Negative) Urine Glucose (UA) (Normal) Urine Ketones (Negative) Urine Blood (Negative) Urine Nitrate (Negative) Urine Bilirubin (Negative) Urine Urobilinogen (Negative) mg/dL Ur Leukocyte Starla ase (Negative) 01/07/21 Range/Units 18:40 WBC (4.0-10.0) 10^3/ uL RBC (4.1-5.3) 10^6/u L Hgb (11.5-15.3) g/dL Hct (37.0-47.0) % MCV (81-99) fL MCH (28.0-34.0) pg MCHC (30.0-36.0) g/dL RDW (12.1-15.1) % Plt Count (130-400) 10^3/c mm MPV (7.4-10.4) fL Neut % (Auto) % Lymph % (Auto) % [place] % (Auto) % Eos % (Auto) % Baso % (Auto) % Neut # (Auto) (1.8-7.7) 10^3/u L Lymph # (Auto) (0.8-4.8) 10^3/u L [place] # (Auto) (0.2-0.9) 10^3/u L Eos # (Auto) (0.0-0.8) 10^3/u L Baso # (Auto) (0.0-0.1) 10^3/u L Nucleated RBC % (a uto) % Nucleated RBCs # /100WBC ESR (0-15) mm/hr Sodium (136-145) mmol/L Potassium (3.5-5.1) mmol/L Chloride (98-107) mmol/L Carbon Dioxide (22-29) mmol/L Anion Gap (5-19) BUN (8-23) mg/dL Creatinine (0.5-0.9) mg/dL GFR Calculation Glucose (65-115) mg/dL Calculated Osmolal ity (285-295) mOsm/k g Calcium (8.5-10.5) mg/dL Magnesium (1.7-2.3) mg/dL Total Bilirubin (0.15-1.2) mg/dL AST (0-32) U/L ALT (0-33) U/L Alkaline Phosphata se (35-105) IU/L C-Reactive Protein (0.0-4.9) mg/L Total Protein (6.6-8.7) g/dL Albumin (3.5-5.2) g/dL Globulin (1.3-4.6) g/dL Urine Color Yellow (Yellow) Urine Appearance Clear (CLEAR) Urine pH 5 (5-7) Ur Specific Gravit y 1.015 (1.005-1.030) Urine Protein Neg (Negative) Urine Glucose (UA) Norm (Normal) Urine Ketones Negative (Negative) Urine Blood Neg (Negative) Urine Nitrate Negative (Negative) Urine Bilirubin Neg (Negative) Urine Urobilinogen Norm (Negative) mg/dL Ur Leukocyte Starla ase Negative (Negative) Discharge Plan Discharge Patient Disposition: Home Clinical Impression: Benign paroxysmal positional vertigo Qualifiers: Laterality: unspecified laterality Qualified Code(s): H81.10 - Benign paroxysmal vertigo, unspecified ear Condition: Stable Prescriptions: New lorazepam 0.5 mg tablet 0.5 mg PO Q12H PRN (Reason: dizziness or vertigo) Qty: 14 RF: 0 Continued meclizine 25 mg tablet 25 mg PO TID PRN (Reason: dizziness) Qty: 10 RF: 0 No Action cholecalciferol (vitamin D3) 50 mcg (2,000 unit) capsule 50 mcg PO DAILY RF: 0 Probiotic 3 billion cell capsule 3,000 mmu cells PO DAILY RF: 0 venlafaxine 150 mg tablet extended release 24hr 150 mg PO DAILY RF: 0 multivitamin Capsule 1 cap PO DAILY RF: 0 venlafaxine 50 mg tablet 75 mg PO DAILY RF: 0 triamcinolone acetonide 0.1 % ointment 1 applic TOPICAL BID Qty: 80 RF: 0 prednisone 10 mg tablet 10 mg PO DAILY Qty: 30 RF: 0 omeprazole 40 mg Capsule,Delayed Release(Dr/Ec) 40 mg PO BID RF: 0 Keppra 1,000 mg Tablet 1,000 mg PO BID RF: 0 levothyroxine 125 mcg tablet 125 mcg PO DAILY Qty: 30 RF: 0 Discharge Orders: Discharge ED (Routine); Ordered 01/07/21 Ordered By: Bib Bocanegra Referrals: Woodrow Estes MD [Primary Care Provider] - 1-3 days Patient Instructions: Vertigo (ED) Activity Restrictions/Additional Instructions: Medications as directed. Come off the lorazepam as soon as possible as your dizziness improves. You may stay on the meclizine until your dizziness resolves. Return for worsening vertigo or dizziness, problems with language, worsening weakness, other concerning symptoms. See your doctor early next week. Coding Level of Care Code ED Lot Attendant for Lucero Vaughn
== END 2021-01-07 22:04 | disposition home or self-care (01) ==
PROVIDERS: Emergency Provider Emergency Medicine; PCP Family Medicine
DX: H81.10 Benign paroxysmal vertigo, unspecified ear (principal); Z87.891 Personal history of nicotine dependence
CPT/HCPCS: 70450; 71045; 80053; 81003; 83735; 85025; 85651; 86140; 96374; 96375; 99283; J1100; J2060; J2405

== ENCOUNTER 2021-01-18 15:49 | Emergency (ER) | payer MEDICARE, OTHER, SELFPAY ==
[2021-01-18] VITALS (8 sets, daily range): BP systolic 108–151; BP diastolic 58–93; PULSE 52–88; RESP 14–27; TEMP 36.8; O2SAT 93–100; BMI 32.8
[2021-01-18 18:33] LABS: Bilirubin Urine Neg (Negative); Blood Urine Neg (Negative); Glucose Urine UA Norm (Normal); Ketones Urine Negative (Negative); Nitrate Urine Negative (Negative); Protein Urine Neg (Negative); Urine Appearance Cloudy (CLEAR); Urine Color Yellow (Yellow); Urobilinogen Urine Norm (Negative); pH Urine 5 (5-7)
[2021-01-18 18:34] LABS: Add Urine Microscopic? YES; Leukocyte Esterase Urine 2+ (Negative)
--- NOTE | 2021-01-18 18:34 | XR_ITS ---
WS: [id number] Portable AP upright chest, 01/18/2021 Clinical Data: Shortness of breath, cough Comparison: Portable chest, 01/07/2021. Findings: No nodules, masses or effusions are seen. The heart is slightly enlarged. The pulmonary vas cularity is not increased. No pneumonia or pneumothorax is seen. The aortic arch and descending aorta show minimal calcification and tortuosity. XR/XR chest 1V portable [id number] Impression: Atherosclerosis and cardiomegaly.
[2021-01-18 18:42] LABS: Basophils % 0.1 %; Eosinophils # 0.1 10^3/uL (0.0-0.8); Eosinophils % 0.6 %; Hematocrit 36.6 % (37.0-47.0); Lymphocytes # 3.5 10^3/uL (0.8-4.8); Lymphocytes % 24.8 %; Mean Corpuscular HGB Conc 32.8 g/dL (30.0-36.0); Mean Corpuscular Volume 85.5 fL (81-99); Mean Platelet Volume 8.8 fL (7.4-10.4); Monocytes # 0.8 10^3/uL (0.2-0.9); Monocytes % 5.5 %; Neutrophils # 9.59 10^3/uL (1.8-7.7); Neutrophils % 68.4 %; Nucleated Red Blood Cells % 0 %; Platelet Count 355 10^3/cmm (130-400); Red Blood Count 4.28 10^6/uL (4.1-5.3); Red Cell Distribution Width 13.3 % (12.1-15.1)
[2021-01-18 19:00] LABS: SARS Covid-2 Antigen Negative (Negative)
[2021-01-18 19:00] LABS: RBC Urine 0-4 /hpf (0-2); Squamous Epithelial Cell Urine 0-4 /hpf (0-5); WBC Urine 55-80 /hpf (0-5)
[2021-01-18 19:01] LABS: Add Urine Culture? Yes; Bacteria Urine 1+ /hpf
[2021-01-18 19:06] LABS: Alanine Aminotransferase 15 U/L (0-33); Albumin Level 3.7 g/dL (3.5-5.2); Alkaline Phosphatase 88 IU/L (35-105); Anion Gap 12.5 (5-19); Aspartate Amino Transferase 21 U/L (0-32); Blood Urea Nitrogen 14 mg/dL (8-23); Calcium 8.2 mg/dL (8.5-10.5); Carbon Dioxide 28 mmol/L (22-29); Chloride 97 mmol/L (98-107); Globulin 1.9 g/dL (1.3-4.6); Glucose 97 mg/dL (65-115); Osmolality Calculated 278 mOsm/kg (285-295); Potassium 3.5 mmol/L (3.5-5.1); Sodium 134 mmol/L (136-145); Total Bilirubin 0.2 mg/dL (0.15-1.2); Total Protein 5.6 g/dL (6.6-8.7)
--- NOTE | 2021-01-18 19:47 | ED_ITS ---
HPI - Dizziness General: Chief Complaint: Dizziness Stated Complaint: Dizzyness, can't balance w/o walker Time Seen by Provider: 01/18/21 17:57 Source: patient Mode of arrival: ambulatory Limitations: no limitations History of Present Illness: HPI Narrative: 75-year-old female complaining of generalized weakness and malaise, lack of energy. She has a long history of vertigo symptoms, has undergone CT and MRI another work-up, currently controlled partially on Valium. She went to her PCPs office and had a steroid shot few days ago, which actually helped her vertigo a little bit, however over the last 2 days she has been feeling very weak, decreased appetite, short of breath, body aches, just generally ill. She has had chills but no fever. No nausea or vomiting. MD elicited complaint: dizziness, lightheadedness, difficulty walking and vertigo Onset (ago): year(s) Severity: similar to previous episodes Description: lightheadedness Associated symptoms: Reports malaise; Denies chest pain, diaphoresis, headache(s), nausea, palpitations or vomiting Associated neuro symptoms: Deny numbness in extremities Review of Systems General: Reports: 10 or more systems reviewed and unremarkable except in HPI and below Const: Reports: chills, body aches, change in appetite, fatigue and malaise; Denies: fever(s), night sweats or diaphoresis Eyes: Denies: change in vision or blurry vision ENMT: Denies: throat pain or hoarseness Card: Denies: chest pain, palpitations, irregular heart rhythm or edema Resp: Reports: dyspnea; Denies: productive cough, non-productive cough, wheezing, hemoptysis or chest congestion GI: Denies: abdominal pain, nausea or vomiting : Reports: urinary frequency; Denies: difficulty voiding, dysuria, urinary urgency or urinary hesitancy Musc: Denies: neck pain, back pain or extremity pain Skin/Breast: Denies: rash, pruritus or erythema Neuro: Reports: weakness in extremities, difficulty walking, dizziness and vertigo; Denies: headache(s) or numbness in extremities Psych: Reports: anxiety Mihir/Lymph: Denies: easy bruising or easy bleeding All/Imm: Denies: urticaria or throat swelling PFSH ED PFSH: Medical History Hypothyroidism Surgical History History of carpal tunnel surgery of right wrist History of hysterectomy History of tonsillectomy and adenoidectomy Family History Grandmother Cancer Father Diabetes Mother Hypertension Other Psychiatric illness Social History Smoking and tobacco status: former smoker Alcohol intake: former Physical Exam Const: COMMON NORMALS: no acute distress, average body habitus and patient oriented x3 GENERAL APPEARANCE: well kempt, lethargic and frail appearing; not in distress and not ill appearing ORIENTATION/CONSCIOUSNESS: Yes oriented to person, Yes oriented to place, Yes oriented to time and Yes lethargic HENMT: COMMON NORMALS: normocephalic and atraumatic HEAD & SCALP: normocephalic and atraumatic FACE & SINUS: normal facial exam and face symmetric Eye: COMMON NORMALS: Equal, round and reactive pupils present, EOMs intact bilaterally, conjunctivae normal and no scleral icterus CONJUNCTIVA: Yes conjunctivae normal PUPIL: Yes Equal, round and reactive pupils present Neck/C-Spine: COMMON NORMALS: full ROM, no lymphadenopathy and supple Chest: COMMONS NORMALS: normal inspection of the chest and normal palpation of entire chest wall Resp: COMMON NORMALS: normal respiratory effort and No retractions EFFORT & INSPECTION: Yes able to speak in complete sentences, No abnormal respiratory pattern, No tachypneic, No respiratory distress and No decreased respiratory effort Cardio: COMMON NORMALS: regular rate and regular rhythm RATE: regular rate RHYTHM: regular rhythm GI: COMMON NORMALS: Normal to inspection, nondistended, normoactive bowel sounds present, Soft to palpation, non-tender and No hepatosplenomegaly present PALPATION: Yes Soft to palpation and Yes No hepatosplenomegaly present : COMMON NORMALS: Yes no CVA tenderness BLADDER/KIDNEY EXAM: Yes no CVA tenderness Back/Pelvis: COMMON NORMALS: no CVA tenderness and thoracic and lumbar spine normal to inspection Extremity: COMMON NORMALS: normal to inspection, full ROM, capillary refill normal and no clubbing, cyanosis or edema Neuro: KAREN COMA SCALE: document GCS findings COMMON NORMALS: patient oriented x3, moves all extremities and no focal motor deficits SENSORIUM/ORIENTATION: Yes oriented to person, Yes oriented to place, Yes oriented to time and Yes lethargic COORDINATION/BALANCE: [id number] test normal SPEECH: speech normal GAIT: Yes Unable to assess gait SENSORY EXAM: Yes extremities COORDINATION: [id number]-pe-jmbv test normal Psych: COMMON NORMALS: Normal thought process present APPEARANCE: Yes well kempt SPEECH: Yes slow MOOD & AFFECT: Yes depressed mood THOUGHT PROCESS: Normal thought process present Skin: COMMON NORMALS: no rashes or lesions noted, no wounds, turgor normal and no jaundice GENERAL SKIN EXAM: no rashes or lesions noted and turgor normal Course Vital Signs: Vital signs: Vital Signs Temperature 98.2 F 01/18/21 16:16 Pulse Rate 88 01/18/21 21:49 Respiratory Rate 18 01/18/21 21:49 Blood Pressure 125/93 01/18/21 21:49 Pulse Oximetry 93 01/18/21 21:49 MDM - Dizziness MDM Narrative: Medical decision making narrative: 75-year-old female with malaise, generalized weakness, fatigue, difficulty ambulating for the last 2 days. History of vertigo, which is actually improved since receiving a steroid shot at her PCPs office few days ago. No ischemic changes on EKG. Chest x-ray negative for any acute infiltrates. Covid swab negative. WBC count elevated at 14, chemistry unremarkable. Urinalysis suggest acute urinary tract infection. Rocephin 1 g IV, IV fluid Symptoms improved, Prescription for Keflex 3 times daily for 5 days. Close follow-up with her PCP to ensure resolution. Medical Records: Attestation: I reviewed the patient's medical records. Lab Data: Attestation: I reviewed the patient's lab results. Labs: Lab Results 01/18/21 01/18/21 01/18/21 Range/Units 18:05 18:25 18:33 WBC 14.0 H (4.0-10.0) 10^3/ uL RBC 4.28 (4.1-5.3) 10^6/u L Hgb 12.0 (11.5-15.3) g/dL Hct 36.6 L (37.0-47.0) % MCV 85.5 (81-99) fL MCH 28.0 (28.0-34.0) pg MCHC 32.8 (30.0-36.0) g/dL RDW 13.3 (12.1-15.1) % Plt Count 355 (130-400) 10^3/c mm MPV 8.8 (7.4-10.4) fL Neut % (Auto) 68.4 % Lymph % (Auto) 24.8 % [place] % (Auto) 5.5 % Eos % (Auto) 0.6 % Baso % (Auto) 0.1 % Neut # (Auto) 9.59 H (1.8-7.7) 10^3/u L Lymph # (Auto) 3.5 (0.8-4.8) 10^3/u L [place] # (Auto) 0.8 (0.2-0.9) 10^3/u L Eos # (Auto) 0.1 (0.0-0.8) 10^3/u L Baso # (Auto) 0.0 (0.0-0.1) 10^3/u L Nucleated RBC % (a uto) 0 % Nucleated RBCs # 0.0 /100WBC Sodium (136-145) mmol/L Potassium (3.5-5.1) mmol/L Chloride (98-107) mmol/L Carbon Dioxide (22-29) mmol/L Anion Gap (5-19) BUN (8-23) mg/dL Creatinine (0.5-0.9) mg/dL GFR Calculation Glucose (65-115) mg/dL Calculated Osmolal ity (285-295) mOsm/k g Calcium (8.5-10.5) mg/dL Magnesium (1.7-2.3) mg/dL Total Bilirubin (0.15-1.2) mg/dL AST (0-32) U/L ALT (0-33) U/L Alkaline Phosphata se (35-105) IU/L Total Protein (6.6-8.7) g/dL Albumin (3.5-5.2) g/dL Globulin (1.3-4.6) g/dL Urine Color Yellow (Yellow) Urine Appearance Cloudy (CLEAR) Urine pH 5 (5-7) Ur Specific Gravit y 1.010 (1.005-1.030) Urine Protein Neg (Negative) Urine Glucose (UA) Norm (Normal) Urine Ketones Negative (Negative) Urine Blood Neg (Negative) Urine Nitrate Negative (Negative) Urine Bilirubin Neg (Negative) Urine Urobilinogen Norm (Negative) mg/dL Ur Leukocyte Starla ase 2+ H (Negative) Urine RBC 0-4 H (0-2) /hpf Urine WBC 55-80 H (0-5) /hpf Ur Squamous Epith Cells 0-4 H (0-5) /hpf Amorphous Sediment Not Reportable Urine Bacteria 1+ H (NONE) /hpf SARS-CoV-2 Ag (Rap id) Negative (Negative) 01/18/21 Range/Units 18:33 WBC (4.0-10.0) 10^3/ uL RBC (4.1-5.3) 10^6/u L Hgb (11.5-15.3) g/dL Hct (37.0-47.0) % MCV (81-99) fL MCH (28.0-34.0) pg MCHC (30.0-36.0) g/dL RDW (12.1-15.1) % Plt Count (130-400) 10^3/c mm MPV (7.4-10.4) fL Neut % (Auto) % Lymph % (Auto) % [place] % (Auto) % Eos % (Auto) % Baso % (Auto) % Neut # (Auto) (1.8-7.7) 10^3/u L Lymph # (Auto) (0.8-4.8) 10^3/u L [place] # (Auto) (0.2-0.9) 10^3/u L Eos # (Auto) (0.0-0.8) 10^3/u L Baso # (Auto) (0.0-0.1) 10^3/u L Nucleated RBC % (a uto) % Nucleated RBCs # /100WBC Sodium 134 L (136-145) mmol/L Potassium 3.5 (3.5-5.1) mmol/L Chloride 97 L (98-107) mmol/L Carbon Dioxide 28 (22-29) mmol/L Anion Gap 12.5 (5-19) BUN 14 (8-23) mg/dL Creatinine 0.7 (0.5-0.9) mg/dL GFR Calculation Not Reportable Glucose 97 (65-115) mg/dL Calculated Osmolal ity 278 L (285-295) mOsm/k g Calcium 8.2 L (8.5-10.5) mg/dL Magnesium 2.0 (1.7-2.3) mg/dL Total Bilirubin 0.2 (0.15-1.2) mg/dL AST 21 (0-32) U/L ALT 15 (0-33) U/L Alkaline Phosphata se 88 (35-105) IU/L Total Protein 5.6 L (6.6-8.7) g/dL Albumin 3.7 (3.5-5.2) g/dL Globulin 1.9 (1.3-4.6) g/dL Urine Color (Yellow) Urine Appearance (CLEAR) Urine pH (5-7) Ur Specific Gravit y (1.005-1.030) Urine Protein (Negative) Urine Glucose (UA) (Normal) Urine Ketones (Negative) Urine Blood (Negative) Urine Nitrate (Negative) Urine Bilirubin (Negative) Urine Urobilinogen (Negative) mg/dL Ur Leukocyte Starla ase (Negative) Urine RBC (0-2) /hpf Urine WBC (0-5) /hpf Ur Squamous Epith Cells (0-5) /hpf Amorphous Sediment Urine Bacteria (NONE) /hpf SARS-CoV-2 Ag (Rap id) (Negative) Discharge Plan Discharge Patient Disposition: Home Clinical Impression: Acute UTI Benign paroxysmal positional vertigo Qualifiers: Laterality: unspecified laterality Qualified Code(s): H81.10 - Benign paroxysmal vertigo, unspecified ear Vestibular disorder Qualifiers: Laterality: unspecified laterality Qualified Code(s): H81.90 - Unspecified disorder of vestibular function, unspecified ear Condition: Stable Prescriptions: New Keflex 500 mg capsule 500 mg PO BID 5 Days Qty: 10 RF: 0 No Action cholecalciferol (vitamin D3) 50 mcg (2,000 unit) capsule 50 mcg PO DAILY@0700 RF: 0 Probiotic 3 billion cell capsule 3,000 mmu cells PO DAILY@0700 RF: 0 venlafaxine 150 mg tablet extended release 24hr 150 mg PO DAILY@0700 RF: 0 multivitamin Tablet 1 tab PO DAILY@0700 RF: 0 venlafaxine 75 mg capsule,extended release 24hr 75 mg PO DAILY@0700 RF: 0 levothyroxine 125 mcg tablet 125 mcg PO DAILY@0700 RF: 0 atorvastatin 20 mg tablet 20 mg PO BEDTIME@1999 RF: 0 hydroxyzine HCl 25 mg tablet 25 mg PO BEDTIME@1999 RF: 0 scopolamine base 1 mg over 3 days patch 3 day 1 patch transdermal Q72H RF: 0 diazepam 5 mg tablet 5 - 10 mg PO Q6H PRN (Reason: DIZZINESSS) RF: 0 omeprazole 40 mg Capsule,Delayed Release(Dr/Ec) 40 mg PO BID@0700,1700 RF: 0 levetiracetam [Keppra] 1,000 mg Tablet 1,000 mg PO BID@0700,1700 RF: 0 Discharge Orders: Discharge ED (Routine); Ordered 01/18/21 Ordered By: Lakesha Garcai Referrals: Woodrow Estes MD [Primary Care Provider] - Discharge Diet: Advance as tolerated Discharge Activity: Resume usual activity Patient Instructions: Urinary Tract Infection in Women (ED), Vertigo (ED) Activity Restrictions/Additional Instructions: Follow-up with your primary care doctor in the next 3 to 5 days to make sure your symptoms are improving. Drink plenty of water, rest, make sure to finish all the antibiotics. Return immediately to the ER if you develop fever, abdominal pain, vomiting, worsening weakness, or any other concerning changes. Coding Level of Care Code ED [employer] for Lucero Vaughn
[2021-01-18] MEDS: cefTRIAXone 1,000 MG in sodium chloride 0.9% (plus) 50 ML 100 MG IV (21:05)
== END 2021-01-18 21:50 | disposition home or self-care (01) ==
PROVIDERS: Emergency Provider Family Medicine; PCP Family Medicine
DX: N39.0 Urinary tract infection, site not specified (principal); H81.10 Benign paroxysmal vertigo, unspecified ear; H81.90 Unspecified disorder of vestibular function, unspecified ear; Z87.891 Personal history of nicotine dependence
CPT/HCPCS: 71045; 80053; 81001; 83735; 85025; 87077; 87086; 87186; 87426; 96365; 99283; J0696

== ENCOUNTER 2021-01-19 11:38 | Emergency (ER) | payer MEDICARE, OTHER, SELFPAY ==
[2021-01-19 12:03] VITALS: PULSE 65; RESP 16; TEMP 37; O2SAT 98; BMI 26.6
[2021-01-19 12:12] VITALS: BP 120/67; PULSE 56; RESP 16; O2SAT 93
[2021-01-19] MEDS: sodium chloride 0.9% 1,000 ML 999 ML IV (12:23)
--- NOTE | 2021-01-19 12:30 | W.ED.FEMALGU ---
HPI - Female Genitourinary General: Chief complaint: Urogenital-Female Stated complaint: UTI and Vertigo Time Seen by Provider: 01/19/21 11:49 Source: patient, family and old records reviewed Mode of arrival: ambulatory Limitations: no limitations History of Present Illness: HPI Narrative: 75-year-old female is returning to the ED today with continued generalized weakness, difficulty ambulating, dizziness on standing, and inability to care for self at home. Her states that he cannot keep an eye on her all the time, and she is high risk for falling. He states that she does listen to them, and gets up without assistance even when he tells her not to. He will find her walking around the house, trying to water plants etc. despite being very unsteady on her feet. He says that she can barely get to the bathroom, and so he is hesitant to give her fluids. Patient denies any nausea or vomiting. No headache. No vision change. She has dizziness when she stands up, ambulates, and when she lays flat or rolls over. She has had the symptoms for a long time, was seen in the ED last week at [facility], awaiting records from that visit. She has been referred to ENT but is awaiting that appointment. She did get her antibiotics filled yesterday for her UTI. She is not complaining of any abdominal pain or fever. Associated symptoms: Deny abdominal pain, headache(s) or nausea Review of Systems General: Reports: 10 or more systems reviewed and unremarkable except in HPI and below Const: Reports: fatigue; Denies: fever(s), chills, body aches or change in appetite Eyes: Denies: change in vision, blurry vision or blind spots ENMT: Denies: odynophagia Card: Denies: chest pain, palpitations or irregular heart rhythm Resp: Denies: dyspnea or productive cough GI: Denies: abdominal pain, nausea or vomiting : Denies: difficulty voiding or dysuria Musc: Denies: neck pain, back pain, extremity pain or extremity swelling Skin/Breast: Denies: rash, pruritus or erythema Neuro: Reports: weakness in extremities, difficulty walking, dizziness and vertigo; Denies: headache(s), numbness in extremities or Slurred speech present Psych: Reports: anxiety, depression and mood swings; Denies: irritability, visual hallucinations or tactile hallucinations Endo: Denies: polyuria, polydipsia or tired all the time Mihir/Lymph: Denies: easy bruising or easy bleeding PFSH ED PFSH: Medical History Hypothyroidism Surgical History History of carpal tunnel surgery of right wrist History of hysterectomy History of tonsillectomy and adenoidectomy Family History Grandmother Cancer Father Diabetes Mother Hypertension Other Psychiatric illness Social History Smoking and tobacco status: former smoker Alcohol intake: former Physical Exam Const: COMMON NORMALS: average body habitus and patient oriented x3 GENERAL APPEARANCE: in distress, lethargic and ill appearing ORIENTATION/CONSCIOUSNESS: Yes lethargic HENMT: COMMON NORMALS: normocephalic and hearing grossly normal bilaterally HEAD & SCALP: normocephalic FACE & SINUS: normal facial exam and face symmetric; no Flattened naso-labial fold present Eye: COMMON NORMALS: Equal, round and reactive pupils present, EOMs intact bilaterally, conjunctivae normal and no scleral icterus VISUAL ACUITY: Yes acuity normal ALIGNMENT: Yes alignment normal CONJUNCTIVA: Yes conjunctivae normal PUPIL: Yes Equal, round and reactive pupils present EOM: Yes EOM abnormal Neck/C-Spine: COMMON NORMALS: full ROM, no lymphadenopathy and supple Resp: COMMON NORMALS: normal respiratory effort, No retractions and No use of accessory muscles Cardio: COMMON NORMALS: regular rhythm, S1 normal heart sound present and S2 normal heart sound present RHYTHM: regular rhythm HEART SOUNDS: S1 normal heart sound present and S2 normal heart sound present GI: COMMON NORMALS: Soft to palpation, non-tender and No hepatosplenomegaly present INSPECTION: Yes normal to inspection PALPATION: Yes Soft to palpation and Yes No hepatosplenomegaly present Extremity: COMMON NORMALS: normal to inspection, capillary refill normal and no clubbing, cyanosis or edema GENERAL: No calf tenderness Neuro: COMMON NORMALS: patient oriented x3, moves all extremities and no focal motor deficits SENSORIUM/ORIENTATION: Yes lethargic CRANIAL NERVES: Yes HiNTS Head impulse: abnormal Nystagmus: unidirectional Skew: normal COORDINATION/BALANCE: cyycog-er-kxmr test normal and hxkx-ii-hrrg test normal GAIT: No Ataxic gait present and Yes Shuffling gait present COORDINATION: vmyfml-vo-xyqx test normal and ntjl-av-jusu test normal Psych: COMMON NORMALS: Normal thought process present, cooperative, speech normal and denies hallucinations APPEARANCE: Yes grossly normal ATTITUDE: Yes calm ACTIVITY/MOTOR BEHAVIOR: Yes appropriate eye contact and Yes restless SPEECH: Yes normal speech MOOD & AFFECT: Yes depressed mood, Yes sad and Yes tearful THOUGHT PROCESS: Normal thought process present THOUGHT CONTENT: Yes Normal thought content present ATTENTION/CONCENTRATION: Yes attention grossly intact MEMORY/COGNITION: Yes memory grossly intact INSIGHT: Good insight present (Psych) JUDGEMENT: Good judgement present (Psych) Skin: COMMON NORMALS: no rashes or lesions noted, no wounds, turgor normal and no jaundice GENERAL SKIN EXAM: no rashes or lesions noted and turgor normal Course Vital Signs: Vital signs: Vital Signs Temperature 98.6 F 01/19/21 12:03 Pulse Rate 56 L 01/19/21 12:12 Respiratory Rate 16 01/19/21 12:12 Blood Pressure 120/67 01/19/21 12:12 Pulse Oximetry 93 01/19/21 12:12 MDM - Female MDM Narrative: Medical decision making narrative: 75-year-old female with longstanding vertigo, dizziness, diagnosed with UTI yesterday brought back in by her with complaints of inability to care for self, difficulty ambulating, generalized weakness. Lab work stable, EKG does not show any acute changes. She is very anxious, becomes tearful when talking about not being able to do things she likes to do at home, and requiring assistance with everything. Jorge maneuver performed. She was able to ambulate to the bedside commode without much instability following. Had a long discussion with her and her , she agreed to ask for assistance whenever she needed to ambulate or get food etc. he agreed to take her home and help her move to different areas of the house/outdoor areas so that she does not get bored. Went through her medications and discontinued Keppra, Prozac, diazepam, lorazepam, meclizine, hydroxyzine, as these all are sedating, and increases her fall risk. He can continue her Keflex. I discussed these plans with her PCP Dr. Estes who will have her follow-up next week in clinic. Medical Records: Attestation: I reviewed the patient's medical records. Lab Data: Attestation: I reviewed the patient's lab results. Labs: Lab Results 01/19/21 01/19/21 01/19/21 Range/Units 12:48 12:48 12:48 WBC 10.5 H (4.0-10.0) 10^3/ uL RBC 4.52 (4.1-5.3) 10^6/u L Hgb 12.4 (11.5-15.3) g/dL Hct 38.6 (37.0-47.0) % MCV 85.4 (81-99) fL MCH 27.4 L (28.0-34.0) pg MCHC 32.1 (30.0-36.0) g/dL RDW 13.4 (12.1-15.1) % Plt Count 341 (130-400) 10^3/c mm MPV 8.6 (7.4-10.4) fL Neut % (Auto) 52.3 % Lymph % (Auto) 38.1 % [place] % (Auto) 6.3 % Eos % (Auto) 1.8 % Baso % (Auto) 0.6 % Neut # (Auto) 5.47 (1.8-7.7) 10^3/u L Lymph # (Auto) 4.0 (0.8-4.8) 10^3/u L [place] # (Auto) 0.7 (0.2-0.9) 10^3/u L Eos # (Auto) 0.2 (0.0-0.8) 10^3/u L Baso # (Auto) 0.1 (0.0-0.1) 10^3/u L Nucleated RBC % (a uto) 0 % Nucleated RBCs # 0.0 /100WBC Sodium 137 (136-145) mmol/L Potassium 4.1 (3.5-5.1) mmol/L Chloride 100 (98-107) mmol/L Carbon Dioxide 29 (22-29) mmol/L Anion Gap 12.1 (5-19) BUN 14 (8-23) mg/dL Creatinine 0.7 (0.5-0.9) mg/dL GFR Calculation Not Reportable Glucose 76 (65-115) mg/dL Calculated Osmolal ity 283 L (285-295) mOsm/k g Calcium 8.7 (8.5-10.5) mg/dL Magnesium 2.0 (1.7-2.3) mg/dL Total Bilirubin 0.2 (0.15-1.2) mg/dL AST 19 (0-32) U/L ALT 15 (0-33) U/L Alkaline Phosphata se 85 (35-105) IU/L Creatine Kinase (26-192) U/L Troponin T Gen 5 n g/L 9 (0-10) ng/L C-Reactive Protein 2.3 (0.0-4.9) mg/L Total Protein 5.7 L (6.6-8.7) g/dL Albumin 3.7 (3.5-5.2) g/dL Globulin 2.0 (1.3-4.6) g/dL 01/19/21 Range/Units 12:48 WBC (4.0-10.0) 10^3/ uL RBC (4.1-5.3) 10^6/u L Hgb (11.5-15.3) g/dL Hct (37.0-47.0) % MCV (81-99) fL MCH (28.0-34.0) pg MCHC (30.0-36.0) g/dL RDW (12.1-15.1) % Plt Count (130-400) 10^3/c mm MPV (7.4-10.4) fL Neut % (Auto) % Lymph % (Auto) % [place] % (Auto) % Eos % (Auto) % Baso % (Auto) % Neut # (Auto) (1.8-7.7) 10^3/u L Lymph # (Auto) (0.8-4.8) 10^3/u L [place] # (Auto) (0.2-0.9) 10^3/u L Eos # (Auto) (0.0-0.8) 10^3/u L Baso # (Auto) (0.0-0.1) 10^3/u L Nucleated RBC % (a uto) % Nucleated RBCs # /100WBC Sodium (136-145) mmol/L Potassium (3.5-5.1) mmol/L Chloride (98-107) mmol/L Carbon Dioxide (22-29) mmol/L Anion Gap (5-19) BUN (8-23) mg/dL Creatinine (0.5-0.9) mg/dL GFR Calculation Glucose (65-115) mg/dL Calculated Osmolal ity (285-295) mOsm/k g Calcium (8.5-10.5) mg/dL Magnesium (1.7-2.3) mg/dL Total Bilirubin (0.15-1.2) mg/dL AST (0-32) U/L ALT (0-33) U/L Alkaline Phosphata se (35-105) IU/L Creatine Kinase 123 (26-192) U/L Troponin T Gen 5 n g/L (0-10) ng/L C-Reactive Protein (0.0-4.9) mg/L Total Protein (6.6-8.7) g/dL Albumin (3.5-5.2) g/dL Globulin (1.3-4.6) g/dL Discharge Plan Discharge Patient Disposition: Home Clinical Impression: Acute UTI, Generalized weakness Vestibular disorder Qualifiers: Laterality: unspecified laterality Qualified Code(s): H81.90 - Unspecified disorder of vestibular function, unspecified ear Condition: Stable Prescriptions: Continued levothyroxine 125 mcg tablet 125 mcg PO DAILY@07 RF: 0 atorvastatin 20 mg tablet 20 mg PO BEDTIME@20 RF: 0 cephalexin [Keflex] 500 mg capsule 500 mg PO BID 5 Days Qty: 10 RF: 0 [place] 5-325 mg Tablet See Rx Instructions .ROUTE .COMPLEX RF: 0 aspirin 81 mg Tablet,Delayed Release (Dr/Ec) 81 mg PO BEDTIME RF: 0 fluticasone propionate 50 mcg/actuation Victor,Suspension 2 spray INTRANASAL DAILY PRN (Reason: Allergy Symptoms) RF: 0 omeprazole 40 mg Capsule,Delayed Release(Dr/Ec) 40 mg PO BID@,17 RF: 0 Held diazepam 5 mg tablet 5 - 10 mg PO Q6H PRN (Reason: DIZZINESSS) RF: 0 Hold Instructions: Doctor's Order fluoxetine 20 mg capsule See Rx Instructions .ROUTE .COMPLEX RF: 0 Hold Instructions: Doctor's Order Discontinued venlafaxine 150 mg tablet extended release 24hr 150 mg PO DAILY RF: 0 hydroxyzine HCl 25 mg tablet 25 mg PO BEDTIME@20 RF: 0 scopolamine base 1 mg over 3 days patch 3 day 1 patch transdermal Q72H PRN (Reason: Nausea And Vomiting) RF: 0 lorazepam 0.5 mg tablet 0.5 mg PO Q12H PRN (Reason: Dizziness) RF: 0 meclizine 25 mg Tablet 25 mg PO TID PRN (Reason: Dizziness) RF: 0 methylprednisolone 4 mg tablets,dose pack See Rx Instructions .ROUTE .COMPLEX RF: 0 Ultra Stem Cell Support 2 cap PO BID RF: 0 levetiracetam [Keppra] 1,000 mg Tablet See Rx Instructions .ROUTE .COMPLEX RF: 0 No Action cholecalciferol (vitamin D3) 50 mcg (2,000 unit) capsule 50 mcg PO DAILY@07 RF: 0 zinc 50 mg Capsule 50 mg PO QAM RF: 0 Curcumin Elite Tumeric Extract 1 cap PO QAM RF: 0 Probiotic 1 cap PO QAM RF: 0 Wellness Formula 1 cap PO QAM RF: 0 Discharge Orders: Discharge ED (Routine); Ordered 01/19/21 Ordered By: Lakesha Garcia Referrals: Woodrow Estes MD [Primary Care Provider] - Discharge Diet: Advance as tolerated Discharge Activity: Resume usual activity and Limit activity as instructed Patient Instructions: Fall Prevention for Older Adults (ED) Activity Restrictions/Additional Instructions: Follow-up with Dr. Estes in the next 3 to 5 days. Ask for assistance with walking and use your walker at all times until your strength and balance is improved. Move slowly, avoid bending over/leaning over or turning around suddenly, as these movements can make you very dizzy and cause you to fall. Finish all of the antibiotics. Return immediately to the ER if you develop fever, worsening dizziness or weakness, chest pain, difficulty breathing, or any other sudden changes. Coding Level of Care Code ED [employer] Work[employer] for Lucero Vaughn
--- NOTE | 2021-01-19 12:43 | PC.NURSE ---
Read and agree with assessment
[2021-01-19 12:51] LABS: Basophils # 0.1 10^3/uL (0.0-0.1); Basophils % 0.6 %; Eosinophils # 0.2 10^3/uL (0.0-0.8); Eosinophils % 1.8 %; Hematocrit 38.6 % (37.0-47.0); Hemoglobin 12.4 g/dL (11.5-15.3); Lymphocytes % 38.1 %; Mean Corpuscular HGB Conc 32.1 g/dL (30.0-36.0); Mean Corpuscular Hemoglobin 27.4 pg (28.0-34.0); Mean Corpuscular Volume 85.4 fL (81-99); Mean Platelet Volume 8.6 fL (7.4-10.4); Monocytes # 0.7 10^3/uL (0.2-0.9); Monocytes % 6.3 %; Neutrophils # 5.47 10^3/uL (1.8-7.7); Neutrophils % 52.3 %; Nucleated Red Blood Cells % 0 %; Platelet Count 341 10^3/cmm (130-400); Red Blood Count 4.52 10^6/uL (4.1-5.3); Red Cell Distribution Width 13.4 % (12.1-15.1); White Blood Count 10.5 10^3/uL (4.0-10.0)
[2021-01-19 13:16] LABS: Alanine Aminotransferase 15 U/L (0-33); Albumin Level 3.7 g/dL (3.5-5.2); Alkaline Phosphatase 85 IU/L (35-105); Anion Gap 12.1 (5-19); Aspartate Amino Transferase 19 U/L (0-32); Blood Urea Nitrogen 14 mg/dL (8-23); C Reactive Protein 2.3 mg/L (0.0-4.9); Calcium 8.7 mg/dL (8.5-10.5); Carbon Dioxide 29 mmol/L (22-29); Chloride 100 mmol/L (98-107); Creatinine Clr Calc Pharmacy 60.6503; Glucose 76 mg/dL (65-115); Osmolality Calculated 283 mOsm/kg (285-295); Potassium 4.1 mmol/L (3.5-5.1); Sodium 137 mmol/L (136-145); Total Bilirubin 0.2 mg/dL (0.15-1.2); Total Protein 5.7 g/dL (6.6-8.7)
[2021-01-19 13:17] LABS: Troponin T (5th) Once 9 ng/L (0-10)
[2021-01-19] MEDS: dexamethasone 4 mg/mL INJ 8 MG IVP (13:26)
[2021-01-19 13:30] LABS: Creatine Phosphokinase 123 U/L (26-192)
--- NOTE | 2021-01-19 13:49 | PC.PHAR ---
pt states she takes keppra 500mg bid-rx bottle pt brought in was filled on 01/15/21 1000mg po bid-pt states she just finished a old medrol dosepak she had at home pt states she took the last one 01/18/21-pt states she takes 40mg of prozac daily-the bottle pt brought in was dated 01/04/21 30d/s for 20mg po daily-pt states she has been out of her venlafaxine er 150mg since dec-ext med history shows last filled on 10/05/20 90d/s pt states she is unsure if she is suppose to be taking-pt also states she was on the er 75mg and hasnt had since nov
[2021-01-19] MEDS: cephALEXin 500 mg Capsule PO (15:05)
== END 2021-01-19 15:48 | disposition home or self-care (01) ==
PROVIDERS: Emergency Provider Family Medicine; PCP Family Medicine
DX: N39.0 Urinary tract infection, site not specified (principal); R53.1 Weakness; H81.90 Unspecified disorder of vestibular function, unspecified ear; Z79.82 Long term (current) use of aspirin; Z87.891 Personal history of nicotine dependence
CPT/HCPCS: 80053; 82550; 83735; 84484; 85025; 86140; 96361; 96374; 99283; J1100; J7030

== ENCOUNTER → 2021-05-18 13:49 | Outpatient (BNVA) | payer MEDICARE, OTHER, SELFPAY | PROVIDERS: PCP Family Medicine; Referring Provider Family Medicine; Visit Provider Nurse Practitioner Family | DX: N39.0 Urinary tract infection, site not specified (principal) | CPT/HCPCS: 81003; 87077; 87086; 87184 ==

== ENCOUNTER → 2021-06-29 10:32 | Outpatient (BNVA) | payer MEDICARE, OTHER, SELFPAY | PROVIDERS: PCP Family Medicine; Visit Provider Urology | DX: N39.0 Urinary tract infection, site not specified (principal); N30.20 Other chronic cystitis without hematuria | CPT/HCPCS: 81003 ==

== ENCOUNTER → 2021-08-21 10:40 | Outpatient (BNVA) | payer MEDICARE, OTHER, SELFPAY | PROVIDERS: PCP Family Medicine; Visit Provider Urology | DX: N30.20 Other chronic cystitis without hematuria (principal) | CPT/HCPCS: 81003 ==

== ENCOUNTER → 2021-11-15 08:14 | Outpatient (BNVA) | payer MEDICARE, OTHER, SELFPAY | PROVIDERS: PCP Family Medicine; Visit Provider Nurse Practitioner Family | DX: N39.0 Urinary tract infection, site not specified (principal); N30.20 Other chronic cystitis without hematuria | CPT/HCPCS: 81003 ==

== ENCOUNTER → 2021-12-19 07:50 | Outpatient (BNVA) | payer MEDICARE, OTHER, SELFPAY | PROVIDERS: PCP Family Medicine; Visit Provider Nurse Practitioner Family | DX: N39.0 Urinary tract infection, site not specified (principal) | CPT/HCPCS: 81003 ==

== ENCOUNTER 2021-12-28 10:16 | Outpatient (CLI) | payer MEDICARE, OTHER, SELFPAY ==
--- NOTE | 2021-12-28 10:30 | MM_ITS ---
WS: [id number] BILATERAL DIGITAL SCREENING MAMMOGRAPHY WITH CAD CLINICAL INFORMATION: SCREENING HISTORY: Screening mammogram. No current complaints. COMPARISON: December 13, 2020 TECHNIQUE: Bilateral CC and MLO views. FINDINGS: Scattered fibroglandular densities bilaterally. Biopsy clip upper outer RIGHT breast. Stable focal as ymmetric density adjacent to the biopsy clip. No suspicious focal mass, asymmetry, calcifications, or architectural distortion. No evidence of malignancy. MM/[place] [id number] IMPRESSION: BI-RADS: 2-Benign FOLLOW UP: 1 Year Follow-up Recommend return to annual screening mammography.
== END 2021-12-28 10:17 | disposition home or self-care (01) ==
PROVIDERS: PCP Family Medicine; Visit Provider Family Medicine
DX: Z12.31 Encounter for screening mammogram for malignant neoplasm of breast (principal)
CPT/HCPCS: 77067

== ENCOUNTER → 2022-02-20 08:48 | Outpatient (BNVA) | payer MEDICARE, OTHER, SELFPAY | PROVIDERS: PCP Family Medicine; Visit Provider Urology | DX: N30.20 Other chronic cystitis without hematuria (principal) | CPT/HCPCS: 81003 ==

== ENCOUNTER → 2022-06-21 08:23 | Outpatient (BNVA) | payer MEDICARE, OTHER, SELFPAY | PROVIDERS: PCP Family Medicine; Visit Provider Nurse Practitioner Family | DX: N30.20 Other chronic cystitis without hematuria; N39.41 Urge incontinence | CPT/HCPCS: 81003; 87077; 87086; 87186; 99213 ==

== ENCOUNTER → 2022-07-31 11:07 | Outpatient (BNVA) | payer MEDICARE, OTHER, SELFPAY | PROVIDERS: PCP Family Medicine; Visit Provider Nurse Practitioner Family | DX: N30.20 Other chronic cystitis without hematuria (principal); N39.41 Urge incontinence | CPT/HCPCS: 99213 ==

== ENCOUNTER → 2022-08-06 09:04 | Outpatient (BNVA) | payer MEDICARE, OTHER, SELFPAY | PROVIDERS: PCP Family Medicine; Visit Provider Nurse Practitioner Family | DX: N30.20 Other chronic cystitis without hematuria (principal); N39.41 Urge incontinence | CPT/HCPCS: 81003 ==

== ENCOUNTER → 2022-09-21 08:02 | Outpatient (BNVA) | payer MEDICARE, OTHER, SELFPAY | PROVIDERS: PCP Family Medicine; Visit Provider Urology | DX: N30.20 Other chronic cystitis without hematuria (principal); N39.41 Urge incontinence | CPT/HCPCS: 81003; 99213 ==

== ENCOUNTER → 2022-12-19 10:48 | Outpatient (BNVA) | payer MEDICARE, OTHER, SELFPAY | PROVIDERS: PCP Family Medicine; Visit Provider Family Medicine | DX: E16.2 Hypoglycemia, unspecified (principal); E03.9 Hypothyroidism, unspecified; Z00.00 Encounter for general adult medical examination without abnormal findings | CPT/HCPCS: 80053; 80061; 82607; 83036; 84443; 85025 ==

== ENCOUNTER 2023-01-04 14:01 | Outpatient (CLI) | payer MEDICARE, OTHER, SELFPAY ==
--- NOTE | 2023-01-04 14:15 | MM_ITS ---
WS: [id number] BILATERAL 3D TOMOSYNTHESIS DIGITAL SCREENING MAMMOGRAPHY WITH CAD CLINICAL INFORMATION: SCREENING HISTORY: Screening mammogram. RIGHT breast pain and soreness COMPARISON: December 28, 2021 TECHNIQUE: Bilateral CC and MLO views. FINDINGS: Scattered fibroglandular densities bilaterally. No suspicious focal mass, asymmetry, calcifications, or architectural distortion. No evidence of malignancy. Biopsy clip upper outer RIGHT breast with par enchymal scarring unchanged. Vascular calcification. MM/[id number] IMPRESSION: BI-RADS: 2-Benign FOLLOW UP: 1 Year Follow-up Recommend return to annual screening mammography.
== END 2023-01-04 14:02 | disposition home or self-care (01) ==
PROVIDERS: PCP Family Medicine; Visit Provider Family Medicine
DX: Z12.31 Encounter for screening mammogram for malignant neoplasm of breast (principal)
CPT/HCPCS: 77063; 77067

== ENCOUNTER → 2023-01-07 15:11 | Outpatient (BNVA) | payer MEDICARE, OTHER, SELFPAY | PROVIDERS: PCP Family Medicine; Visit Provider Urology | DX: N30.20 Other chronic cystitis without hematuria (principal) | CPT/HCPCS: 81003; 99213 ==

== ENCOUNTER 2023-03-04 12:51 | Emergency (ER) | payer MEDICARE, OTHER, SELFPAY ==
[2023-03-04 12:57] VITALS: BP 142/73; PULSE 73; RESP 16; TEMP 36.4; O2SAT 97; BMI 31.3
[2023-03-04 14:00] LABS: Basophils # 0.1 10^3/uL (0.0-0.1); Basophils % 0.7 %; Eosinophils # 0.3 10^3/uL (0.0-0.8); Eosinophils % 3.5 %; Hematocrit 36.7 % (37.0-47.0); Hemoglobin 11.3 g/dL (11.5-15.3); Lymphocytes # 2.1 10^3/uL (0.8-4.8); Lymphocytes % 28.5 %; Mean Corpuscular HGB Conc 30.8 g/dL (30.0-36.0); Mean Corpuscular Hemoglobin 25.6 pg (28.0-34.0); Mean Platelet Volume 8.6 fL (7.4-10.4); Monocytes # 0.4 10^3/uL (0.2-0.9); Monocytes % 5.6 %; Neutrophils % 61.4 %; Nucleated Red Blood Cells % 0 %; Platelet Count 312 10^3/cmm (130-400); Red Blood Count 4.42 10^6/uL (4.1-5.3); Red Cell Distribution Width 14.3 % (12.1-15.1); White Blood Count 7.5 10^3/uL (4.0-10.0)
[2023-03-04 14:30] LABS: Alanine Aminotransferase 13 U/L (0-33); Albumin Level 3.8 g/dL (3.5-5.2); Alkaline Phosphatase 96 U/L (35-105); Anion Gap 12.1 (5-19); Aspartate Amino Transferase 15 U/L (0-32); Blood Urea Nitrogen 11 mg/dL (8-23); Calcium 8.8 mg/dL (8.5-10.5); Carbon Dioxide 28 mmol/L (22-29); Chloride 100 mmol/L (98-107); Globulin 2.3 g/dL (1.3-4.6); Glucose 99 mg/dL (65-115); Osmolality Calculated 281 mOsm/kg (285-295); Potassium 4.1 mmol/L (3.5-5.1); Sodium 136 mmol/L (136-145); Thyroid Stimulating Hormone 0.01 uIU/mL (0.27-4.20); Total Bilirubin 0.2 mg/dL (0.15-1.2); Total Protein 6.1 g/dL (6.6-8.7)
== END 2023-03-04 14:03 | disposition left against medical advice (07) ==
LOC: ER 12:57
PROVIDERS: Emergency Medicine; Emergency Provider Family Medicine; PCP Family Medicine
DX: Z53.21 Procedure and treatment not carried out due to patient leaving prior to being seen by health care provider (principal)
CPT/HCPCS: 36415; 80053; 84443; 85025; 99283

== ENCOUNTER → 2023-04-24 08:23 | Outpatient (BNVA) | payer MEDICARE, OTHER, SELFPAY | PROVIDERS: PCP Family Medicine; Visit Provider Nurse Practitioner Family | DX: S20.461A Insect bite (nonvenomous) of right back wall of thorax, initial encounter (principal); W57.XXXA Bitten or stung by nonvenomous insect and other nonvenomous arthropods, initial encounter; L02.02 Furuncle of face; L57.8 Other skin changes due to chronic exposure to nonionizing radiation; Z71.89 Other specified counseling; L85.3 Xerosis cutis; D22.5 Melanocytic nevi of trunk; L81.4 Other melanin hyperpigmentation; L82.1 Other seborrheic keratosis; Z85.828 Personal history of other malignant neoplasm of skin; Z87.891 Personal history of nicotine dependence | CPT/HCPCS: 99214 ==

== ENCOUNTER → 2023-05-07 08:38 | Outpatient (BNVA) | payer MEDICARE, OTHER, SELFPAY | PROVIDERS: PCP Family Medicine; Visit Provider Urology | DX: N30.20 Other chronic cystitis without hematuria (principal); Z79.2 Long term (current) use of antibiotics | CPT/HCPCS: 81003; 99213 ==

== ENCOUNTER → 2023-08-05 09:42 | Outpatient (BNVA) | payer MEDICARE, OTHER, SELFPAY | PROVIDERS: PCP Family Medicine; Visit Provider Nurse Practitioner Family | DX: S70.362A Insect bite (nonvenomous), left thigh, initial encounter (principal); L02.02 Furuncle of face; L68.9 Hypertrichosis, unspecified; L57.8 Other skin changes due to chronic exposure to nonionizing radiation; L85.3 Xerosis cutis; D22.5 Melanocytic nevi of trunk; L81.4 Other melanin hyperpigmentation; L82.1 Other seborrheic keratosis; Z08 Encounter for follow-up examination after completed treatment for malignant neoplasm; Z85.828 Personal history of other malignant neoplasm of skin; L57.0 Actinic keratosis | CPT/HCPCS: 17000; 99214 ==

== ENCOUNTER → 2023-08-29 08:40 | Outpatient (BNVA) | payer MEDICARE, OTHER, SELFPAY | PROVIDERS: PCP Family Medicine; Visit Provider Nurse Practitioner Family | DX: S70.362A Insect bite (nonvenomous), left thigh, initial encounter (principal); L02.02 Furuncle of face; L57.8 Other skin changes due to chronic exposure to nonionizing radiation; Z71.89 Other specified counseling; L85.3 Xerosis cutis; D22.5 Melanocytic nevi of trunk; L81.4 Other melanin hyperpigmentation; L82.1 Other seborrheic keratosis; Z85.828 Personal history of other malignant neoplasm of skin; L57.0 Actinic keratosis; X58.XXXA Exposure to other specified factors, initial encounter | CPT/HCPCS: 17000; 17110; 99213 ==

== ENCOUNTER → 2023-09-05 11:39 | Outpatient (BNVA) | payer MEDICARE, OTHER, SELFPAY | PROVIDERS: PCP Family Medicine; Visit Provider Clinical Nurse Specialist Adult Health | DX: N39.0 Urinary tract infection, site not specified (principal); N30.20 Other chronic cystitis without hematuria | CPT/HCPCS: 81000; 87086 ==

== ENCOUNTER 2024-01-06 10:51 | Outpatient (CLI) | payer MEDICARE, SELFPAY ==
--- NOTE | 2024-01-06 10:55 | MM_ITS ---
WS: [id number] VIEWS: MLO and CC views both breasts. 3D digital tomosynthesis is also included in this exam. Comparison made with prior exam of 10/08/2012, 10/24/2018, 10/29/2019, 12/13/2020, 12/28/2021, 02/01/2023 .. Findings: There was no sign of mass, architectural distortion or suspicious calcification in either breast. The breasts are almost entirely fatty Impression: MM/[place] [id number] BI-RADS: 1-Negative FOLLOW-UP: 1 Year Follow-up This mammogram was also analyzed by the Computer Aided Detection System [employer].
== END 2024-01-06 10:52 | disposition home or self-care (01) ==
PROVIDERS: PCP Family Medicine; Visit Provider Family Medicine
DX: Z12.11 Encounter for screening for malignant neoplasm of colon (principal)
CPT/HCPCS: 77063; 77067

== ENCOUNTER 2024-01-09 10:51 | Outpatient (CLI) | payer MEDICARE, SELFPAY ==
--- NOTE | 2024-01-09 10:58 | CT_ITS ---
WS: [id number] CT ABDOMEN AND PELVIS WITH AND WITHOUT CONTRAST HISTORY: HEMATURIA, RECURRENT UTI'S TECHNIQUE: Unenhanced 5 mm axial imaging first performed through the abdomen. Post contrast imaging t hrough the abdomen and pelvis. Oral contrast has not been provided. Sagittal and coronal reformats a re submitted. All CT scans at [facility] use at least one of these dose optimization techniqu es: automated exposure control; mA and/or kV adjustment per patient size (includes targeted exams whe re dose is matched to clinical indication); or iterative reconstruction. CONTRAST: Omnipaque 350; 95 mL IV. DLP: 2017.45 mGy.cm COMPARISON: 10/13/2018 No pneumonia at the lung bases Large hiatal hernia. No pleural effusion. Normal liver, spleen and gallbladder. No bile duct dilatation. Normal pancreas. Kidneys are symmetric bilaterally. No obstruction or mass. No solid or cystic masses. No renal obstru ction. Small cortical defect lower pole LEFT kidney unchanged since 2018. Moderate atherosclerosis aorta. No GI tract obstruction. No colitis. Prior appendectomy and prior hysterectomy. No pelvic mass or paul e fluid. Normal urinary bladder. L4 anterolisthesis by 6 mm. Facet joint arthritis. No fractures. Goldy ateral femoral head osteonecrosis. IMPRESSION: 1. No renal calcification, obstruction or mass. No uroepithelial lesions identified. 2. Prior appendectomy. 3. No ascites or adenopathy. 4. Moderate hiatal hernia.
[2024-01-09 11:21] LABS: Blood Urea Nitrogen 9 mg/dL (8-23)
[2024-01-09] MEDS: iohexol 350 mg/mL 500 mL Btl (per mL) IV (11:27)
== END 2024-01-09 10:52 | disposition home or self-care (01) ==
LOC: RAD 10:52
PROVIDERS: Radiology Neuroradiology; PCP Family Medicine; Visit Provider Nurse Practitioner Family
DX: R31.9 Hematuria, unspecified (principal); Z87.440 Personal history of urinary (tract) infections; K44.9 Diaphragmatic hernia without obstruction or gangrene; I70.0 Atherosclerosis of aorta
CPT/HCPCS: 74178; 82565; 84520; Q9967

== ENCOUNTER → 2024-02-20 09:13 | Outpatient (BNVA) | payer MEDICARE, SELFPAY | PROVIDERS: PCP Family Medicine; Visit Provider Podiatrist Foot & Ankle Surgery | DX: L60.3 Nail dystrophy; L84 Corns and callosities | CPT/HCPCS: 99203 ==

== ENCOUNTER → 2024-07-27 13:36 | Outpatient (BNVA) | payer MEDICARE, SELFPAY | PROVIDERS: PCP Family Medicine; Visit Provider Family Medicine | DX: E55.9 Vitamin D deficiency, unspecified (principal); E03.9 Hypothyroidism, unspecified; N39.0 Urinary tract infection, site not specified; E11.9 Type 2 diabetes mellitus without complications; R53.83 Other fatigue | CPT/HCPCS: 80053; 82306; 82607; 83880; 84443; 85025; 86140 ==

== ENCOUNTER 2024-08-04 06:00 | Outpatient (CLI) | payer MEDICARE, SELFPAY | END 2024-08-04 06:01 | disposition home or self-care (01) | LOC: RAD 08-13 12:59 | PROVIDERS: PCP Family Medicine; Visit Provider Family Medicine | DX: N39.0 Urinary tract infection, site not specified (principal) | CPT/HCPCS: 81000; 87086 ==

== ENCOUNTER 2024-09-03 08:18 | Outpatient (CLI) | payer MEDICARE, SELFPAY ==
--- NOTE | 2024-09-03 08:30 | USCV_ITS ---
Rosenberg Fara Age: 79 Gender: F : 1945 Exam Date: 09/03/2024 08:34 Ordering Phys: Woodrow Estes MD Technologist: Chetna Cornelius Exam Location: [facility] – [place] Indication: SOB INCREASED BNP BP: / HR: 72 Rhythm: Sinus Technical Quality: Adequate MEASUREMENTS (Male / Female) Normal Values 2D ECHO LV Diastolic Diameter PLAX 4.8 cm 4.2 - 5.9 / 3.9 - 5.3 cm IVS Diastolic Thickness 0.8 cm 0.6 - 1.0 / 0.6 - 0.9 cm IVS Systolic Thickness 1.3 cm LVPW Diastolic Thickness 0.8 cm 0.6 - 1.0 / 0.6 - 0.9 cm LVPW Systolic Thickness 1.3 cm LVOT Diameter 2.0 cm LV Ejection Fraction 2D Teich 70.3 % LV Ejection Fraction MOD 4C 43.2 % LV Ejection Fraction MOD 2C 72.6 % LV Ejection Fraction 2C AL 72.0 % LA Diameter 2.2 cm RA Systolic Volume 4C AL 12.3 ml RA Systolic Volume 4C MOD 12.0 ml LA Sys Volume AL 19.3 cm cubed LA Sys Volume Index AL 9.8 cm cubed/m squared Aorta at Sinotubular Diameter 2.8 cm IVC Diameter 1.8 cm M-MODE LA Ao Ratio MM 1.0 AV Cusp Separation MM 1.7 cm DOPPLER AV Peak Velocity 166.0 cm/s LVOT Peak Velocity 129.0 cm/s AV Area Cont Eq vti 2.0 cm squared AV Area Cont Eq pk 2.4 cm squared MV Area PHT 4.4 cm squared Mitral E to A Ratio 0.8 TV Peak Velocity 143.3 cm/s TR Peak Velocity 176.0 cm/s TR Peak Gradient 12.4 mmHg TR Mean Velocity 145.0 cm/s TR Mean Gradient 8.9 mmHg TR Velocity Time Integral 48.3 cm TV Peak E Velocity 65.0 cm/s PV Peak Velocity 114.5 cm/s FINDINGS Left Ventricle Normal left ventricular size, systolic function and wall thickness, with no regional wall motion abnormalities. Left ventricular ejection fraction is estimated at 60 %. Grade I/IV diastolic dysfunction (abnormal relaxation filling pattern), normal to mildly elevated filling pressures. Right Ventricle The right ventricle is normal in size and function. Right Atrium The right atrium is normal in size. Left Atrium The left atrium is normal in size. Mitral Valve Structurally normal mitral valve without significant stenosis or prolapse. There is no mitral regurgitation. Aortic Valve Thickened aortic valve. Trace aortic valve regurgitation. Tricuspid Valve Structurally normal tricuspid valve without significant stenosis or regurgitation. Pulmonary artery systolic pressure is normal. Pulmonic Valve Structurally normal pulmonic valve without significant stenosis. There is no pulmonic regurgitation. Pericardium Normal pericardium without effusion. Aorta Normal ascending aorta dimension. IVC The inferior vena cava appears normal. CONCLUSIONS Normal left ventricular size, systolic function and wall thickness, with no regional wall motion abnormalities. Left ventricular ejection fraction is estimated at 60 %. Grade I/IV diastolic dysfunction (abnormal relaxation filling pattern), normal to mildly elevated filling pressures. No significant valve abnormalities. There is no pericardial effusion. Right atrial pressure is around 5 mm of mercury. Jovany Cruz MD (Electronically Signed) Final Date: 03 September 2024 20:35 S
== END 2024-09-03 08:19 | disposition home or self-care (01) ==
PROVIDERS: PCP Family Medicine; Visit Provider Family Medicine
DX: I35.0 Nonrheumatic aortic (valve) stenosis (principal); R07.9 Chest pain, unspecified
CPT/HCPCS: 93306

== ENCOUNTER → 2024-09-09 11:26 | Outpatient (BNVA) | payer MEDICARE, SELFPAY | PROVIDERS: PCP Family Medicine; Visit Provider Nurse Practitioner Family | DX: L57.8 Other skin changes due to chronic exposure to nonionizing radiation (principal); L85.3 Xerosis cutis; D22.5 Melanocytic nevi of trunk; L57.0 Actinic keratosis; L81.4 Other melanin hyperpigmentation; L82.1 Other seborrheic keratosis; L82.0 Inflamed seborrheic keratosis; Z85.828 Personal history of other malignant neoplasm of skin | CPT/HCPCS: 17000; 17110; 80048; 84443; 99213 ==

== ENCOUNTER → 2024-10-30 10:10 | Outpatient (BNVA) | payer MEDICARE, SELFPAY | PROVIDERS: PCP Family Medicine; Visit Provider Emergency Medicine | DX: R39.9 Unspecified symptoms and signs involving the genitourinary system (principal) | CPT/HCPCS: 81000 ==

== ENCOUNTER → 2024-12-11 11:29 | Outpatient (BNVA) | payer MEDICARE, SELFPAY | PROVIDERS: PCP Family Medicine; Visit Provider Family Medicine | DX: E03.9 Hypothyroidism, unspecified (principal); E87.1 Hypo-osmolality and hyponatremia; E11.9 Type 2 diabetes mellitus without complications | CPT/HCPCS: 80048; 84443; 84481 ==

== ENCOUNTER 2025-01-14 08:15 | Outpatient (CLI) | payer MEDICARE, SELFPAY ==
--- NOTE | 2025-01-14 08:17 | MM_ITS ---
WS: [id number] BILATERAL SCREENING DIGITAL TOMOSYNTHESIS MAMMOGRAM WITH CAD HISTORY: SCREENING COMPARISON: 01/06/2024 and 01/04/2023 and 12/28/2021 Bilateral CC and MLO views with tomosynthesis and synthetic mammography submitted. Computer aided detection analyzed. Breast composition: There are scattered areas of fibroglandular density. No suspicious masses, microcalcifications or architectural distortion. Biopsy site 9:00 RIGHT breast appears unchanged over multiple prior examinations. There are also additional benign calcifications in the RIGHT breast. MM/MM scr tomosynthesis [id number] IMPRESSION: BI-RADS: 2 - Benign. FOLLOW UP: 1 Year Follow-up
== END 2025-01-14 08:16 | disposition home or self-care (01) ==
PROVIDERS: PCP Family Medicine; Visit Provider Family Medicine
DX: Z12.31 Encounter for screening mammogram for malignant neoplasm of breast (principal); R92.323 Mammographic fibroglandular density, bilateral breasts; R92.1 Mammographic calcification found on diagnostic imaging of breast
CPT/HCPCS: 77063; 77067

== ENCOUNTER → 2025-04-12 12:42 | Outpatient (BNVA) | payer MEDICARE, SELFPAY | PROVIDERS: PCP Family Medicine; Visit Provider Family Medicine | DX: N39.0 Urinary tract infection, site not specified (principal) | CPT/HCPCS: 81000; 87086 ==

== ENCOUNTER → 2025-05-03 10:18 | Outpatient (BNVA) | payer MEDICARE, SELFPAY | PROVIDERS: PCP Family Medicine; Visit Provider Family Medicine | DX: N39.0 Urinary tract infection, site not specified (principal) | CPT/HCPCS: 87086 ==

== ENCOUNTER → 2025-05-17 11:03 | Outpatient (BNVA) | payer MEDICARE, SELFPAY | PROVIDERS: PCP Family Medicine; Visit Provider Family Medicine | DX: N39.0 Urinary tract infection, site not specified (principal); R30.0 Dysuria | CPT/HCPCS: 81000; 87086 ==

== ENCOUNTER → 2025-08-23 14:45 | Outpatient (BNVA) | payer MEDICARE, SELFPAY | PROVIDERS: PCP Family Medicine; Visit Provider Family Medicine | DX: N39.0 Urinary tract infection, site not specified (principal) | CPT/HCPCS: 87086 ==

== ENCOUNTER → 2025-09-01 15:25 | Outpatient (BNVA) | payer MEDICARE, SELFPAY | PROVIDERS: PCP Family Medicine; Visit Provider Nurse Practitioner Family | DX: L81.4 Other melanin hyperpigmentation (principal); L57.8 Other skin changes due to chronic exposure to nonionizing radiation; L82.1 Other seborrheic keratosis; D18.01 Hemangioma of skin and subcutaneous tissue; Z08 Encounter for follow-up examination after completed treatment for malignant neoplasm; Z85.828 Personal history of other malignant neoplasm of skin; L82.0 Inflamed seborrheic keratosis; L29.89 Other pruritus; Z78.9 Other specified health status; R20.8 Other disturbances of skin sensation; L53.8 Other specified erythematous conditions | CPT/HCPCS: 17110; 99213 ==